=== PATIENT | female | born 1965 | race African-American/Black ===

== ENCOUNTER 2017-02-01 15:17 | Inpatient (IN) | payer OTHER ==
--- NOTE | 2017-02-01 16:29 | HP ---
COWS - Scale Resting Pulse: 2= MS 101-120 Sweatin=Flushed/Facial Moisture Restless Observation: 3= Extraneous Movement Pupil Size: 2= Moderately Dilated Bone or Joint Aches: 2= Severe Diffuse Aches Runny Nose/ Eye Tearin= Runny Nose/Eyes GI Upset > 30mins: 3= Vomiting/Diarrhea Tremor Observation: 2= Slight Tremor Visible Yawning Observation: 2= >3x During Session Anxiety or Irritability: 2=Irritable/Anxious Goose Flesh Skin: 0=Smooth Skin COWS Score: 22 Admission ROS S - HPI Chief Complaint: I NEED HELP TO STOP USINIG PERCOCET Allergies/Adverse Reactions: Allergies Allergy/AdvReac Type Severity Reaction Status Date / Time shellfish derived Allergy Mild Hives Verified 03/16/16 09:45 Sulfa (Sulfonamide Allergy Verified 03/16/16 09:45 Antibiotics) sulfamethoxazole Allergy Verified 03/16/16 09:45 [From Bactrim] trimethoprim [From Bactrim] Allergy Verified 03/16/16 09:45 History of Present Illness: THIS 52 YEARS OLD FEMALE WITH OPIOID DEPENDENCE PERCOCET,SEEKING DETOX,LAST DETOX,LAST DETOX 08/29/12 TO 09/01/12 MULTIPLE MEDICAL PROBLEM HIV SINCE 1998,ASTHMA,COPD,WEIGHT LOSS LONGEST PERIOD OF SOBRIETY 3 YEARS Exam Limitations: No Limitations - Ebola screening Have you traveled outside of the country in the last 21 days: No Have you had contact with anyone from an Ebola affected area: No Do you have a fever: No - Review of Systems Constitutional: Chills, Diaphoresis, Loss of Appetite, Malaise, Night Sweats, Changes in sleep, Weakness, Unintentional Wgt. Loss EENT: reports: Tearing, Nose Congestion Respiratory: reports: No Symptoms reported Cardiac: reports: Palpitations GI: reports: Diarrhea, Nausea, Poor Appetite, Vomiting, Abdominal cramping, Other (ANAL CANCER S/P RADIATION AND CHEMOTHERAPY IN 2010) : reports: No Symptoms Reported, Other (S/P NEPHRECTOMY RIGHT FOR CANCER) Musculoskeletal: reports: Back Pain, Joint Pain, Muscle Pain, Joint Stiffness (S /P RIGHT KNEE REPLACEMANT S/P RIGHT HIP REPLACEMANT) Integumentary: reports: Dryness Neuro: reports: Headache, Tremors Endocrine: reports: No Symptoms Reported Hematology: reports: Other (HIV) Psychiatric: reports: Judgement Intact, Mood/Affect Appropiate, Orientated x3 ( INSPMNIA) Patient History - Patient Medical History Hx Anemia: Yes Hx Asthma: Yes Hx Chronic Obstructive Pulmonary Disease (COPD): Yes Hx Cancer: Yes (Rectal Carcinoma ,Cervical CA, Renal Mass Treated c Chemo/RT (2010)) Hx Seizures: No Hx Liver Disease: (Hepatic Lesion) Hx Renal Disease (ESRD): Yes (Renal Mass) Hx Human Immunodeficiency Virus (HIV): Yes (SINCE 1998) Hx Hepatitis C: Yes Hx Depression: No Hx Suicide Attempt: No Hx Bipolar Disorder: No Hx Schizophrenia: No Other Medical History: IN SOMNIA,NO SUICIDAL,NO HOMIIDAL - Patient Surgical History Past Surgical History: Yes Hx Genitourinary Surgery: Yes (NEPHRECTOMY RIGHT IN 10/2015 [facility]) Hx Orthopedic Surgery: Yes (S/P RIGHT HIP AND RIGHT KNEE REPLACEMENT) Hx Hysterectomy: Yes Other Surgical History: Hysterectomy (2004), Port Removed Anesthesia Reaction: No - PPD History Previous Implant?: Yes Documented Results: Negative w/o proof Implanted On Prior [facility] Admission?: Yes Date: 09/01/12 PPD to be Administered?: Yes - Reproductive History Patient is a Female of Child Bearing Age (11 -55 yrs old): Yes Last Menstrual Period: 11/22/04 - Smoking Cessation Smoking history: Former smoker Have you smoked in the past 12 months: No Aproximately how many cigarettes per day: 0 If you are a former smoker, when did you quit?: STATED SHE STOP 1 MONTH Hx Chewing Tobacco Use: No Initiated information on smoking cessation: No - Substance & Tx. History Hx Alcohol Use: No Hx Substance Use: Yes Substance Use Type: Opiates Hx Substance Use Treatment: Yes ([facility] 08/29/12 TO 09/01/12) - Substances Abused PERCOCET Route: Oral Frequency: Daily Amount used: 40 MGS Age of first use: 51 Date of Last Use: 01/30/17 Family Disease History - Family Disease History Family History: Denies Admission Physical Exam BHS - Vital Signs Vital Signs: Vital Signs Temperature 98.8 F 02/01/17 16:56 Pulse Rate 120 H 02/01/17 16:56 Respiratory Rate 20 02/01/17 16:56 Blood Pressure 117/82 02/01/17 16:56 O2 Sat by Pulse Oximetry (%) - Physical General Appearance: Yes: Moderate Distress, Tremorous, Irritable, Sweating, Anxious HEENTM: Yes: Hearing grossly Normal, Pharynx Normal, Nasal Congestion Respiratory: Yes: Lungs Clear, Normal Breath Sounds, No Respiratory Distress Neck: Yes: Within Normal Limits, Supple, Trachea in good position Breast: Yes: Breast Exam Deferred Cardiology: Yes: Tachycardia Abdominal: Yes: Within Normal Limits, Normal Bowel Sounds, Non Tender, Soft Genitourinary: Yes: Within Normal Limits, Other (S/P RIGHT NEPHRECTOMY) Back: Yes: Muscle Spasm Musculoskeletal: Yes: Back pain, Joint Stiffness, Muscle Pain Extremities: Yes: Tremors (S/P RIGHT HP AND RIGHT KNEE REPLACEMENT), Other (S/P RIGHT HIP AND RIGHT KNEE REPLACEMENT) Neurological: Yes: knuckle bender II-XII NML intact, Fully Oriented, Alert, Motor Strength 5/5 Integumentary: Yes: Dry Lymphatic: Yes: Within Normal Limits - Diagnostic (1) Opioid dependence with withdrawal Current Visit: Yes Status: Acute (2) Asthma Current Visit: No Status: Active (3) HIV Current Visit: No Status: Active (4) COPD (chronic obstructive pulmonary disease) Current Visit: No Status: Acute (5) Lower back pain Current Visit: No Status: Acute (6) Weight loss Current Visit: Yes Status: Acute (7) History of nephrectomy, unilateral Current Visit: Yes Status: Acute (8) Status post right hip replacement Current Visit: Yes Status: Acute (9) Status post right knee replacement Current Visit: Yes Status: Acute (10) Hepatitis C Current Visit: Yes Status: Acute (11) Insomnia Current Visit: Yes Status: Acute (12) S/P hysterectomy Current Visit: Yes Status: Acute (13) Anal cancer Current Visit: Yes Status: Acute (14) History of radiation therapy Current Visit: Yes Status: Acute Screened but not Admitted - Documentation of Visit Screened but not Admitted: Yes Left Prior to Completion of Assessment: No Level of Care Recommended at this Time: ER Evaluation/Care Additional Information/Explanation: THIS 52 YEARS OLD FEMALE PRESET IN [facility] FOR DETOX FROM OPIATE. PERCOCET,MULTIPLE MEDICAL PROBLEMS,HIV,DIARRHEA,HEPATITIS , . ASTHMA,COPD,ANAL CANCER,S/P RIGHT NEPHRECTOMY,S/P RIGHT HIP AND RIGHT KNEE REPLCEMENT,PRIVOUS HITORY OF RADIATION AND CHEMOTHERAPY. EXTREMELY WEAK, DEHYDRATED,POOR FLUID INTAKE,. STATED HVING FEVER AND CHILL AT HOME. R/O SEPSIS,COLITITIS,HYOTENSION,DEHYRATED. TACHYCARDIA. PATIENT TO BE TRANSPOTED BY [facility] FOR EVALUATIO AND TREATMENT,MEDICAL CLEARANCE BY [facility]. SPOKE WITH DR PEÑA. BARTOLO [employer] SANDER PRESENT IN [facility] Breath Alcohol Content Breath Alcohol Content: 0 Vital Signs - Vital Signs Vital Signs Refused: No Temperature: 98.8 F Temperature Source: Oral Pulse Rate: 120 Respiratory Rate: 20 Blood Pressure: 117/82 BP Location: Left Arm - Height Height: 5 ft 7 in - Weight Weight: 150 lb Weight Measurement Method: Standing Scale Body Mass Index (BMI): 23.5
--- NOTE | 2017-02-01 18:05 | PN ---
S Progress Note Note: ADDENDUM URINE FOR RRUG SCREEN SHOWED POSITIVE FOR FOR OXY AND THC LOT [id number] EXPIRATION DATE 07/23/18 URINE FOR UCG NEGATIVE LOT [id number] EXP 07/23/18
--- NOTE | 2017-02-02 00:07 | HP ---
COWS - Scale Resting Pulse: 2= PA 101-120 Sweatin=Flushed/Facial Moisture Restless Observation: 3= Extraneous Movement Pupil Size: 2= Moderately Dilated Bone or Joint Aches: 2= Severe Diffuse Aches Runny Nose/ Eye Tearin= Runny Nose/Eyes GI Upset > 30mins: 3= Vomiting/Diarrhea Tremor Observation: 2= Slight Tremor Visible Yawning Observation: 2= >3x During Session Anxiety or Irritability: 2=Irritable/Anxious Goose Flesh Skin: 0=Smooth Skin COWS Score: 22 Admission ROS [facility] Chief Complaint: WITHDRAWAL SYMPTOMS Allergies/Adverse Reactions: Allergies Allergy/AdvReac Type Severity Reaction Status Date / Time shellfish derived Allergy Mild Hives Verified 02/01/17 18:30 Sulfa (Sulfonamide Allergy Verified 02/01/17 18:30 Antibiotics) sulfamethoxazole Allergy Verified 02/01/17 18:30 [From Bactrim] trimethoprim [From Bactrim] Allergy Verified 02/01/17 18:30 History of Present Illness: 52 Y.O. WOMAN WITH AN EXTENSIVE HISTORY OF PERCOCET DEPENDENCE IS HERE SEEKING DETOX. SHE WAS LAST ADMITTED HERE FOR DETOX ON 08/29/12. SHE WAS SENT TO [facility] EARLIER D/T WEAKNESS, DIARRHEA AND DEHYDRATION. SHE WAS DX WITH VIRAL GASTROENTERITIS AND RETURNS TO [facility] FOR DETOX. Exam Limitations: Physical Impairment (Uses a walker to ambulate.) - Ebola screening Have you traveled outside of the country in the last 21 days: No Have you had contact with anyone from an Ebola affected area: No Do you have a fever: No - Review of Systems Constitutional: Chills, Diaphoresis, Loss of Appetite, Malaise, Night Sweats, Changes in sleep, Weakness, Unintentional Wgt. Loss EENT: reports: Tearing, Nose Congestion Respiratory: reports: No Symptoms reported Cardiac: reports: Palpitations GI: reports: Diarrhea, Nausea, Poor Appetite, Vomiting, Abdominal cramping, Other (ANAL CA S/P RADIATION AND CHEMOTHERAPY IN 2010) : reports: No Symptoms Reported, Other (S/P RIGHT NEPHRECTOMY R/T CA) Musculoskeletal: reports: Back Pain, Joint Pain, Muscle Pain, Joint Stiffness, Other (S/T R KNEE REPLACEMENT S/P R HIP REPLACEMENT) Integumentary: reports: Dryness Neuro: reports: Headache, Tremors Endocrine: reports: No Symptoms Reported Hematology: reports: Other (HIV) Psychiatric: reports: Judgement Intact, Mood/Affect Appropiate, Orientated x3, other (INSOMNIA) Other Systems: Reviewed and Negative Patient History - Patient Medical History Hx Anemia: Yes Hx Asthma: Yes Hx Chronic Obstructive Pulmonary Disease (COPD): Yes Hx Cancer: Yes (Rectal Carcinoma ,Cervical CA, Renal Mass Treated c Chemo/RT (2010)) Hx Seizures: No Hx Liver Disease: (Hepatic Lesion) Hx Renal Disease (ESRD): Yes (Renal Mass) Hx Human Immunodeficiency Virus (HIV): Yes (SINCE 1998) Hx Hepatitis C: Yes (TREATED ) Hx Depression: No Hx Suicide Attempt: No Hx Bipolar Disorder: No Hx Schizophrenia: No Other Medical History: INSOMNIA, DENIES SI/HI - Patient Surgical History Past Surgical History: Yes Hx Genitourinary Surgery: Yes (NEPHRECTOMY RIGHT IN 10/2015 [facility]) Hx Orthopedic Surgery: Yes (S/P RIGHT HIP AND RIGHT KNEE REPLACEMENT) Hx Hysterectomy: Yes Other Surgical History: Hysterectomy (2004), Port Removed Anesthesia Reaction: No - PPD History Previous Implant?: Yes Documented Results: Negative w/o proof Implanted On Prior [facility] Admission?: Yes Date: 09/01/12 PPD to be Administered?: Yes - Reproductive History Patient is a Female of Child Bearing Age (11 -55 yrs old): Yes Last Menstrual Period: 11/22/04 Patient : No - Smoking Cessation Smoking history: Former smoker Have you smoked in the past 12 months: No Aproximately how many cigarettes per day: 0 If you are a former smoker, when did you quit?: STATED SHE STOPPED 3 YEARS AGO Hx Chewing Tobacco Use: No Initiated information on smoking cessation: No - Substance & Tx. History Hx Alcohol Use: No Hx Substance Use: Yes Substance Use Type: Opiates Hx Substance Use Treatment: Yes ([facility] [place] 08/2012) - Substances Abused PERCOCET Route: Oral Frequency: Daily Amount used: 40 MGS Age of first use: 51 Date of Last Use: 01/30/17 Family Disease History - Family Disease History Family Disease History: CA: Father (THROAT CA), Mother (BR CA ) Admission Physical Exam BHS - Vital Signs Vital Signs: Vital Signs - 24 hr Last Vital Signs Temp Pulse Resp BP Pulse Ox 98 F 114 H 16 124/80 02/02/17 00:41 02/02/17 00:41 02/02/17 00:41 02/02/17 00:41 - Physical General Appearance: Yes: Moderate Distress, Tremorous, Irritable, Sweating, Anxious HEENTM: Yes: Hearing grossly Normal, Normocephalic, Normal Voice Respiratory: Yes: Chest Non-Tender, Lungs Clear, Normal Breath Sounds, No Respiratory Distress, No Accessory Muscle Use Neck: Yes: Supple, Trachea in good position Breast: Yes: Breast Exam Deferred Cardiology: Yes: Tachycardia Abdominal: Yes: Non Tender, Flat, Soft Genitourinary: Yes: Other (No complaints reported) Back: Yes: Muscle Spasm Musculoskeletal: Yes: Back pain, Joint Stiffness, Muscle Pain, Other (S/p right hip and right knee replacement) Extremities: Yes: Tremors Neurological: Yes: Alert, Normal Mood/Affect, Normal Response - Diagnostic (1) Anal cancer Current Visit: Yes Status: Chronic (2) Hepatitis C Current Visit: Yes Status: Chronic (3) History of nephrectomy, unilateral Current Visit: Yes Status: Chronic (4) History of radiation therapy Current Visit: Yes Status: Chronic (5) Opioid dependence with withdrawal Current Visit: Yes Status: Chronic (6) Weight loss Current Visit: Yes Status: Acute (7) Asthma Current Visit: Yes Status: Acute (8) CHRONIC RT HIP PAIN Current Visit: Yes Status: Acute (9) HIV Current Visit: Yes Status: Acute (10) COPD (chronic obstructive pulmonary disease) Current Visit: Yes Status: Chronic (11) Gastroenteritis Current Visit: Yes Status: Acute Cleared for Admission S - Detox or Rehab S Level of Care: Medically Managed Detox Regimen/Protocol: Methadone S Breath Alcohol Content Breath Alcohol Content: 0 Vital Signs - Vital Signs Vital Signs Refused: No Temperature: 98 F Temperature Source: Oral Pulse Rate: 114 Respiratory Rate: 16 Blood Pressure: 124/80 BP Location: Left Arm Blood Pressure Position: Sitting - Height Height: 5 ft 7 in - Weight Weight: 147 lb Weight Measurement Method: Standing Scale Body Mass Index (BMI): 23.0 - Bowel Function Bowel Movement: Yes Urine Pregancy Test - Test Device Lot Number: [id number] Expiration Date: 07/23/18 - Control Horizontal Line in Upper Control Window?: Yes - Result Urine Test Results: Negative- NO Line Present Urine Drug Screen - Test Device Lot Number: [id number] Expiration Date: 07/23/18 - Control Is Test Valid: Yes - Results Urine Drug Screen Results: THC-Marijuana, OXY-Oxycodone
[2017-02-02] MEDS ORDERED: METHADONE HCL 10 MG TABLET (FOR DETOX USE ONLY) PO ONE ×3 (00:11→23:00)
[2017-02-02] MEDS ORDERED: guaiFENesin/D-METHORPHAN HB 10 ML UNIT-DOSE CUPS PO PRN (00:11)
[2017-02-02] MEDS ORDERED: LOPERAMIDE HCL 2 MG CAPSULE PO PRN (00:11)
[2017-02-02] MEDS ORDERED: MAG HYDROX/AL HYDROX/SIMETH 30 ML UNIT-DOSE CUP PO PRN (00:11)
[2017-02-02] MEDS ORDERED: MENTHOL/PHENOL 1 EACH UD MM PRN (00:11)
[2017-02-02] MEDS ORDERED: MAGNESIUM HYDROX 2400MG/30ML ORAL SUSPENSION 30 ML CUP PO PRN (00:11)
[2017-02-02] MEDS ORDERED: MAGNESIUM CITRATE 300 ML BOTTLE PO PRN (00:11)
[2017-02-02] MEDS ORDERED: ACETAMINOPHEN 325 MG TABLET (FP) PO PRN (00:11)
[2017-02-02] MEDS ORDERED: P-EPHED 60MG/TRIPROLIDI 2.5MG TABLET PO PRN (00:11)
[2017-02-02 00:33] VITALS: BMI 23.0
[2017-02-02] MEDS: diphenhydrAMINE HCL 50 MG CAPSULE PO PRN (01:20)
[2017-02-02] MEDS: IBUPROFEN 400 MG TABLET (FP) PO PRN (01:20)
[2017-02-02] MEDS: diazePAM 5 MG TABLET PO PRN ×2 (01:20→22:29)
[2017-02-02] MEDS ORDERED: DRONABINOL 5 MG CAPSULE PO SCH (06:00)
[2017-02-02] MEDS ORDERED: DRONABINOL 2.5 MG CAPSULE PO SCH ×2 (06:18→06:45)
[2017-02-02] MEDS: ALBUTEROL SO4 6.7 GM HFA INHALER IH PRN ×2 (08:36→22:30)
[2017-02-02] MEDS ORDERED: ALBUTEROL SO4 2.5/IPRATROPIUM 0.5 INH SOL 3 ML VIAL.NEB. NEB PRN (08:40)
[2017-02-02] MEDS ORDERED: cloNIDine HCL 0.1 MG TABLET PO ONE (10:32)
--- NOTE | 2017-02-02 10:35 | PN ---
BHS COWS - Scale Resting Pulse: 4= AL > 121 Sweatin= Chills/Flushing Restless Observation: 1= Difficult to Sit Still Pupil Size: 0= Normal to Room Light Bone or Joint Aches: 2= Severe Diffuse Aches Runny Nose/ Eye Tearin= Runny Nose/Eyes GI Upset > 30mins: 2= Nausea/Diarrhea Tremor Observation of Outstretched Hands: 2= Slight Tremor Visible Yawning Observation: 2= >3x During Session Anxiety or Irritability: 2=Irritable/Anxious Goose Flesh Skin: 0=Smooth Skin COWS Score: 18 BHS Progress Note (SOAP) Subjective: anxious sweats shakes interrupted sleep irritable Objective: 02/02/17 10:33 Vital Signs Temperature 98.2 F 02/02/17 10:00 Pulse Rate 129 H 02/02/17 10:00 Respiratory Rate 20 02/02/17 10:00 Blood Pressure 113/69 02/02/17 10:00 O2 Sat by Pulse Oximetry (%) labs pending awake/alert in wheel chair for ambulating no acute distress Assessment: 02/02/17 10:34 withdrawal sx Plan: continue detox increase fluids labs pending
[2017-02-02] MEDS: BUDESONIDE/FORMETEROL FUMARATE 160/4.5 mcg INHALER IH SCH ×2 (10:40→22:30)
--- NOTE | 2017-02-02 10:40 | PN ---
[facility] Progress Note Note: pt became irrate and threatening with another patient. pt advised not to continue such behavior but if it continue pt will be escorted by security off the unit. Pt was given a final warning. Pt was reminded that her reason for being her is to get the right tx but if her behavior and threats towards another patient or staff continue she will be d/c. pt is aware and in agreement.
[2017-02-02] MEDS: RITONAVIR 100 MG TABLET PO SCH (10:41)
[2017-02-02] MEDS: RALTEGRAVIR POTASSIUM 400 MG TAB PO SCH (10:41)
[2017-02-02] MEDS: DARUNAVIR ETHANOLATE 800 MG TAB PO SCH (10:41)
[2017-02-02] MEDS: PRENATAL VITAMINS W/ FOLIC ACID TABLET (FP) PO SCH (10:42)
[2017-02-02] MEDS: DRONABINOL 2.5 MG CAPSULE PO SCH ×2 (10:45→17:13)
--- NOTE | 2017-02-02 14:12 | EKG ---
Test Reason : Blood Pressure : / mmHG Vent. Rate : 111 BPM Atrial Rate : 111 BPM P-R Int : 156 ms QRS Dur : 076 ms QT Int : 352 ms P-R-T Axes : 071 049 052 degrees QTc Int : 478 ms SINUS TACHYCARDIA OTHERWISE NORMAL ECG WHEN COMPARED WITH ECG OF 27-NOV-2014 16:17, NO SIGNIFICANT CHANGE WAS FOUND Confirmed by MOLLY RIVERA MD ([id number]) on 02/02/2017 2:11:29 PM Referred By: Confirmed By:MOLLY RIVERA MD
[2017-02-02] MEDS: THIAMINE HCL 100 MG TABLET (FP) PO SCH (22:29)
[2017-02-03] MEDS: ALBUTEROL SO4 6.7 GM HFA INHALER IH PRN ×2 (07:20→19:17)
--- NOTE | 2017-02-03 09:17 | PN ---
BHS COWS - Scale Resting Pulse: 2= RI 101-120 Sweatin=Flushed/Facial Moisture Restless Observation: 1= Difficult to Sit Still Pupil Size: 0= Normal to Room Light Bone or Joint Aches: 2= Severe Diffuse Aches Runny Nose/ Eye Tearin= Nasal Congestion GI Upset > 30mins: 0= None Tremor Observation of Outstretched Hands: 1= Tremor [place], Not Seen Yawning Observation: 1= 1-2x During Session Anxiety or Irritability: 2=Irritable/Anxious Goose Flesh Skin: 0=Smooth Skin COWS Score: 12 BHS Progress Note (SOAP) Subjective: agitation sweats interrupted sleep body aches Objective: 02/03/17 09:34 Vital Signs Temperature 98.9 F 02/03/17 06:00 Pulse Rate 117 H 02/03/17 06:00 Respiratory Rate 18 02/03/17 06:00 Blood Pressure 139/77 02/03/17 06:00 O2 Sat by Pulse Oximetry (%) labs pending awake/alert ambulating no acute distress Assessment: 02/03/17 09:40 withdrawal sx Plan: continue detox increase fluids labs pending
[2017-02-03] MEDS ORDERED: cloNIDine HCL 0.1 MG TABLET PO ONE (09:30)
[2017-02-03 09:56] LABS: MCH 23.8 pg (25.7-33.7); MCHC 31.3 g/dl (32.0-36.0); MEAN CELL VOLUME 76.1 fl (80-96); MEAN PLT VOLUME 9.4 fl (7.5-11.1); PLATELET COUNT 293 K/MM3 (134-434); RDW 21.5 % (11.6-15.6); WHITE BLOOD COUNT 7.5 K/mm3 (4.0-10.0)
[2017-02-03] MEDS ORDERED: METHADONE HCL 10 MG TABLET (FOR DETOX USE ONLY) PO ONE (10:00)
[2017-02-03 10:10] LABS: ALBUMIN 3.5 g/dl (3.4-5.0); BILIRUBIN,TOTAL 0.3 mg/dL (0.2-1.0); CALCIUM 9.7 mg/dL (8.5-10.1); COCKROFT - GAULT 67.694; TOT PROT 7.5 g/dl (6.4-8.2)
[2017-02-03] MEDS: BUDESONIDE/FORMETEROL FUMARATE 160/4.5 mcg INHALER IH SCH ×2 (10:40→22:19)
[2017-02-03] MEDS: DRONABINOL 2.5 MG CAPSULE PO SCH ×2 (10:40→17:06)
[2017-02-03] MEDS: DARUNAVIR ETHANOLATE 800 MG TAB PO SCH (10:40)
[2017-02-03] MEDS: RITONAVIR 100 MG TABLET PO SCH (10:40)
[2017-02-03] MEDS: PRENATAL VITAMINS W/ FOLIC ACID TABLET (FP) PO SCH (10:41)
[2017-02-03] MEDS: RALTEGRAVIR POTASSIUM 400 MG TAB PO SCH (10:42)
[2017-02-03] MEDS: IBUPROFEN 400 MG TABLET (FP) PO PRN ×2 (10:44→22:21)
[2017-02-03] MEDS: diazePAM 5 MG TABLET PO PRN ×2 (10:44→22:19)
[2017-02-03] MEDS ORDERED: DRONABINOL 2.5 MG CAPSULE PO ONE (10:51)
[2017-02-03] MEDS: THIAMINE HCL 100 MG TABLET (FP) PO SCH (22:19)
[2017-02-03] MEDS: diphenhydrAMINE HCL 50 MG CAPSULE PO PRN (22:20)
[2017-02-04] MEDS: diazePAM 5 MG TABLET PO PRN ×2 (06:35→22:30)
[2017-02-04] MEDS: IBUPROFEN 400 MG TABLET (FP) PO PRN ×2 (06:35→22:33)
[2017-02-04] MEDS: ALBUTEROL SO4 6.7 GM HFA INHALER IH PRN ×3 (06:35→19:54)
[2017-02-04] MEDS ORDERED: METHADONE HCL 5 MG TABLET (FOR DETOX USE ONLY) PO ONE (10:00)
[2017-02-04] MEDS: BUDESONIDE/FORMETEROL FUMARATE 160/4.5 mcg INHALER IH SCH ×2 (10:52→22:29)
[2017-02-04] MEDS: RITONAVIR 100 MG TABLET PO SCH (10:53)
[2017-02-04] MEDS: RALTEGRAVIR POTASSIUM 400 MG TAB PO SCH (10:53)
[2017-02-04] MEDS: DRONABINOL 2.5 MG CAPSULE PO SCH ×2 (10:53→17:17)
[2017-02-04] MEDS: PRENATAL VITAMINS W/ FOLIC ACID TABLET (FP) PO SCH (10:53)
[2017-02-04] MEDS: DARUNAVIR ETHANOLATE 800 MG TAB PO SCH (10:53)
--- NOTE | 2017-02-04 11:26 | PN ---
BHS Progress Note (SOAP) Subjective: sweats mild shakes Objective: 02/04/17 11:26 Vital Signs Temperature 98.2 F 02/04/17 10:00 Pulse Rate 129 H 02/04/17 10:00 Respiratory Rate 20 02/04/17 10:00 Blood Pressure 116/69 02/04/17 10:00 O2 Sat by Pulse Oximetry (%) awake/alert no acute distress Assessment: 02/04/17 11:26 mild withdrawal sx Plan: continue detox increase fluids
[2017-02-04] MEDS: diphenhydrAMINE HCL 50 MG CAPSULE PO PRN (22:29)
[2017-02-04] MEDS: THIAMINE HCL 100 MG TABLET (FP) PO SCH (22:30)
[2017-02-05] MEDS: hydrOXYzine PAMOATE 50 MG CAPSULE (FP) PO PRN ×2 (06:01→22:46)
[2017-02-05] MEDS: IBUPROFEN 400 MG TABLET (FP) PO PRN (06:01)
[2017-02-05] MEDS ORDERED: METHADONE HCL 5 MG TABLET (FOR DETOX USE ONLY) PO ONE (10:00)
[2017-02-05] MEDS: PRENATAL VITAMINS W/ FOLIC ACID TABLET (FP) PO SCH (10:45)
[2017-02-05] MEDS: RALTEGRAVIR POTASSIUM 400 MG TAB PO SCH (10:45)
[2017-02-05] MEDS: DARUNAVIR ETHANOLATE 800 MG TAB PO SCH (10:46)
[2017-02-05] MEDS: BUDESONIDE/FORMETEROL FUMARATE 160/4.5 mcg INHALER IH SCH ×2 (10:46→22:44)
[2017-02-05] MEDS: DRONABINOL 2.5 MG CAPSULE PO SCH ×2 (10:46→17:39)
[2017-02-05] MEDS: RITONAVIR 100 MG TABLET PO SCH (10:47)
--- NOTE | 2017-02-05 12:47 | PN ---
BHS Progress Note (SOAP) Subjective: sweats anxiety Objective: 02/05/17 12:46 Vital Signs Temperature 99.1 F 02/05/17 09:57 Pulse Rate 118 H 02/05/17 09:57 Respiratory Rate 16 02/05/17 09:57 Blood Pressure 141/84 02/05/17 09:57 O2 Sat by Pulse Oximetry (%) awake/alert ambulating no acute distress Assessment: 02/05/17 12:46 withdrawal sx Plan: continue detox increase fluids
[2017-02-05] MEDS: ALBUTEROL SO4 6.7 GM HFA INHALER IH PRN (22:45)
[2017-02-05] MEDS: THIAMINE HCL 100 MG TABLET (FP) PO SCH (23:29)
[2017-02-06] MEDS: IBUPROFEN 400 MG TABLET (FP) PO PRN (04:38)
[2017-02-06] MEDS: hydrOXYzine PAMOATE 50 MG CAPSULE (FP) PO PRN ×2 (04:41→11:14)
[2017-02-06] MEDS ORDERED: METHADONE HCL 10 MG TABLET (FOR DETOX USE ONLY) PO ONE (10:00)
[2017-02-06] MEDS: RALTEGRAVIR POTASSIUM 400 MG TAB PO SCH (11:08)
[2017-02-06] MEDS: BUDESONIDE/FORMETEROL FUMARATE 160/4.5 mcg INHALER IH SCH (11:08)
[2017-02-06] MEDS: DRONABINOL 2.5 MG CAPSULE PO SCH (11:09)
[2017-02-06] MEDS: DARUNAVIR ETHANOLATE 800 MG TAB PO SCH (11:09)
[2017-02-06] MEDS: RITONAVIR 100 MG TABLET PO SCH (11:09)
[2017-02-06] MEDS: PRENATAL VITAMINS W/ FOLIC ACID TABLET (FP) PO SCH (11:09)
[2017-02-06 11:12] VITALS: BP 132/81; PULSE 113; TEMP 98.1
--- NOTE | 2017-02-06 11:27 | PN ---
S Progress Note Note: Pt is feeling "great" and will be d/c today. Pt states will f/u with her PMD and go the physical therapy as scheduled.
--- NOTE | 2017-02-06 11:33 | DS ---
[facility] Detox Discharge Summary Admission Date: 02/02/17 Discharge Date: 02/06/17 - History Present History: Alcohol Dependence, Opioid Dependence - Physical Exam Results Vital Signs: Vital Signs Temperature 98.1 F 02/06/17 11:11 Pulse Rate 113 H 02/06/17 11:11 Respiratory Rate 20 02/06/17 11:11 Blood Pressure 132/81 02/06/17 11:11 O2 Sat by Pulse Oximetry (%) - Treatment Hospital Course: Detox Protocol Followed, Detoxed Safely, Responded well, Discharged Condition Good, Rehab Referral Accepted - Medication Discharge Medications: Ambulatory Orders Albuterol Sulfate Inhaler - [Ventolin HFA Inhaler -] 1 inh PO QID PRN 07/24/14 Darunavir Ethanolate [Prezista] 800 mg PO DAILY 07/24/14 Raltegravir Potassium [Isentress] 800 mg PO DAILY 07/24/14 Ritonavir [Norvir] 100 mg PO DAILY 07/24/14 Budesonide/Formeterol Fumarate [SYMBICORT 160/4.5mcg -] 1 inh PO BID 03/16/16 Dronabinol [Marinol] 5 mg PO TID 03/16/16 - Diagnosis (1) Asthma Current Visit: Yes Status: Chronic (2) CHRONIC RT HIP PAIN Current Visit: Yes Status: Chronic (3) Gastroenteritis Current Visit: Yes Status: Chronic (4) HIV Current Visit: Yes Status: Chronic (5) Insomnia Current Visit: Yes Status: Chronic (6) S/P hysterectomy Current Visit: Yes Status: Acute (7) Status post right hip replacement Current Visit: Yes Status: Acute (8) Status post right knee replacement Current Visit: Yes Status: Acute (9) Weight loss Current Visit: Yes Status: Acute (10) Anal cancer Current Visit: No Status: Inactive (11) COPD (chronic obstructive pulmonary disease) Current Visit: Yes Status: Chronic Qualifiers: COPD type: chronic bronchitis (12) Hepatitis C Current Visit: Yes Status: Chronic Qualifiers: Viral hepatitis chronicity: chronic Hepatic coma status: without hepatic coma Qualified Code(s): B18.2 - Chronic viral hepatitis C (13) History of nephrectomy, unilateral Current Visit: Yes Status: Resolved (14) History of radiation therapy Current Visit: Yes Status: Resolved (15) Opioid dependence with withdrawal Current Visit: Yes Status: Chronic (16) Alcohol dependence Current Visit: No Status: Active (17) Cocaine abuse Current Visit: No Status: Active (18) Bronchospasm Current Visit: No Status: Acute (19) Exacerbation of asthma Current Visit: No Status: Acute (20) Lower back pain Current Visit: No Status: Acute - AMA Did Patient Leave Against Medical Advice: No (d/c home )
[2017-02-07] MEDS ORDERED: METHADONE HCL 5 MG TABLET (FOR DETOX USE ONLY) PO ONE (06:00)
== END 2017-02-06 12:25 | disposition home or self-care (01) | DRG 773 ==
LOC: YASAS 15:17 → Y6N 02-02 00:35
PROVIDERS: ADMIT Internal Medicine; ATTEND Internal Medicine
PROC: HZ2ZZZZ Detoxification Services for Substance Abuse Treatment (ICD-10-PCS; principal; 2017-02-02)
DX: F11.23 Opioid dependence with withdrawal (principal); F10.230 Alcohol dependence with withdrawal, uncomplicated; F14.10 Cocaine abuse, uncomplicated; D64.9 Anemia, unspecified; J45.901 Unspecified asthma with (acute) exacerbation; J42 Unspecified chronic bronchitis; M25.551 Pain in right hip; G89.29 Other chronic pain; K52.9 Noninfective gastroenteritis and colitis, unspecified; R00.0 Tachycardia, unspecified; Z21 Asymptomatic human immunodeficiency virus [HIV] infection status; G47.00 Insomnia, unspecified; Z90.710 Acquired absence of both cervix and uterus; Z96.641 Presence of right artificial hip joint; Z96.651 Presence of right artificial knee joint; Z87.898 Personal history of other specified conditions; C21.0 Malignant neoplasm of anus, unspecified; Z92.21 Personal history of antineoplastic chemotherapy; B18.2 Chronic viral hepatitis C; Z90.5 Acquired absence of kidney; M54.5 Low back pain; Z87.891 Personal history of nicotine dependence; Z85.41 Personal history of malignant neoplasm of cervix uteri
CPT/HCPCS: 36415; 80053; 85027; 86593; 93005; 93010; 94640

== ENCOUNTER 2017-02-01 18:21 | Emergency (ER) | payer OTHER ==
[2017-02-01 18:30] VITALS: BMI 23.0
[2017-02-01] MEDS ORDERED: SODIUM CHLORIDE 1,000 ML IV STA (19:32)
--- NOTE | 2017-02-01 19:34 | PDOC ---
History of Present Illness - General Chief Complaint: Substance Abuse Stated Complaint: DETOX WITHDRAWAL Time Seen by Provider: 02/01/17 19:10 History Source: Patient Exam Limitations: No Limitations - History of Present Illness Initial Comments: 02/01/17 21:30 52yo Female patient w/ PmHx: HIV+, Opioid Dependence, Hip and Knee replacement presents to ED c/o n/v/d. Patient states she was seen at [facility] emergency department for n/v/d this morning and diagnosed with viral gastroenteritis and signed herself out. She was then referred to [address] [place] [address] for Detox from Opioids. Patient was then sent from [address] [place] [address] to this emergency department for medical clearance regarding n/v/d and fever. Timing/Duration: constant Severity: mild Modifying Factors: worse with: cold therapy, eating, immobilization, medication , movement, rest, other Associated Symptoms: denies: denies symptoms, chest pain, cough, diaphoresis, fever/chills, headaches, loss of appetite, malaise, nausea/vomiting, rash, seizure, shortness of breath, syncope, weakness, other Aspirin Received prior to arrival: No: no aspirin today, unknown, 81 mg x 1, 81 mg x 2, 81 mg x 3, 81 mg x 4, 325 mg x 1, provided at home, provided by EMS, provided by ED [facility] Contraindications(Core Measure): No: Allergy, Other, Active Blding w/i 24 hrs., Plavix, Receiving Warfarin Past History - Travel Traveled outside of the country in the last 30 days: No Close contact w/someone who was outside of country & ill: No - Past Medical History Allergies/Adverse Reactions: Allergies Allergy/AdvReac Type Severity Reaction Status Date / Time shellfish derived Allergy Mild Hives Verified 02/01/17 18:30 Sulfa (Sulfonamide Allergy Verified 02/01/17 18:30 Antibiotics) sulfamethoxazole Allergy Verified 02/01/17 18:30 [From Bactrim] trimethoprim [From Bactrim] Allergy Verified 02/01/17 18:30 Home Medications: Ambulatory Orders Albuterol Sulfate Inhaler - [Ventolin HFA Inhaler -] 1 inh PO QID PRN 07/24/14 Darunavir Ethanolate [Prezista] 800 mg PO DAILY 07/24/14 Raltegravir Potassium [Isentress] 800 mg PO DAILY 07/24/14 Ritonavir [Norvir] 100 mg PO DAILY 07/24/14 Budesonide/Formeterol Fumarate [SYMBICORT 160/4.5mcg -] 1 inh PO BID 03/16/16 Dronabinol [Marinol] 5 mg PO TID 03/16/16 Anemia: Yes Asthma: Yes Cancer: Yes (Rectal Carcinoma ,Cervical CA, Renal Mass Treated c Chemo/RT (2010)) COPD: Yes HIV: Yes Liver Disease: (Hepatic Lesion) Suicide Attempt (Hx): No Seizures: No - Surgical History Orthopedic Surgery: Yes (S/P RIGHT HIP AND RIGHT KNEE REPLACEMENT) - Psycho/Social/Smoking Cessation Hx Anxiety: No Suicidal Ideation: No Smoking Status: Yes Smoking History: Former smoker Have you smoked in the past 12 months: No Number of Cigarettes Smoked Daily: 5 If you are a former smoker, when did you quit?: STATED SHE STOP 1 MONTH Information on smoking cessation initiated: No 'Breaking Loose' booklet given: 01/14/13 Hx Alcohol Use: No Drug/Substance Use Hx: No Substance Use Type: None, Opiates Hx Substance Use Treatment: Yes ([facility] 08/29/12 TO 09/01/12) Review of Systems - Review of Systems Able to Perform ROS?: Yes Is the patient limited Khmer proficient: No Constitutional: Yes: Fever. No: Chills Respiratory: No: Cough, Orthopnea, Shortness of Breath, Stridor Cardiac (ROS): No: Chest Pain, Lightheadedness, Palpitations ABD/GI: Yes: Diarrhea, Nausea, Vomiting. No: Poor Appetite, Poor Fluid Intake, Abdominal cramping : No: Burning, Dysuria, Hematuria, Urgency Musculoskeletal: No: Back Pain Integumentary: No: Bruising, Erythema, Rash, Sweating Neurological: No: Headache, Seizure, Ataxia, Dizziness All Other Systems: Reviewed and Negative *Physical Exam - Vital Signs Last Vital Signs Temp Pulse Resp BP Pulse Ox 99.3 F 119 H 18 128/89 100 02/01/17 18:26 02/01/17 18:26 02/01/17 18:26 02/01/17 18:26 02/01/17 18:26 - Physical Exam General Appearance: Yes: Nourished, Appropriately Dressed. No: Apparent Distress, Mild Distress, Moderate Distress, Severe Distress HEENT: positive: EOMI, MATTHEW, Normal ENT Inspection, Normal Voice, Symmetrical, TMs Normal, Pharynx Normal. negative: Pharyngeal Erythema, Tonsillar Exudate, Tonsillar Erythema, TM Bulging, TM Dull, TM Erythema Neck: positive: Trachea midline, Normal Thyroid, Supple. negative: Rigid, Stridor, Lymphadenopathy (R), Lymphadenopathy (L) Respiratory/Chest: positive: Lungs Clear, Normal Breath Sounds. negative: Chest Tender, Respiratory Distress, Accessory Muscle Use, Labored Respiration, Rapid RR, Stridor, Wheezing Cardiovascular: positive: Regular Rhythm, Regular Rate Gastrointestinal/Abdominal: positive: Normal Bowel Sounds, Soft. negative: Distended, Guarding, Rebound, Tenderness Musculoskeletal: positive: Normal Inspection. negative: CVA Tenderness Extremity: positive: Normal Capillary Refill, Normal Inspection, Normal Range of Motion. negative: Pedal Edema, Swelling, Calf Tenderness, Erythema, Inflammation Integumentary: positive: Normal Color, Dry, Warm Neurologic: positive: crime lab analyst II-XII NML intact, Fully Oriented, Alert, Normal Mood/ Affect, Normal Response, Motor Strength 12/26 ED Treatment Course - LABORATORY CBC & Chemistry Diagram: 02/01/17 19:40 02/01/17 19:40 - RADIOLOGY Radiology Studies Ordered: Category Date Time Status ABDOMEN & PELVIS CT W/O CONTR [CT] Stat CT Scan 02/01/17 19:33 Ordered CHEST PA & LAT [RAD] Stat Radiology 02/01/17 19:32 Ordered *DC/Admit/Observation/Transfer Diagnosis at time of Disposition: Gastroenteritis - Discharge Dispostion Disposition: HOME Condition at time of disposition: Stable Admit: No - Patient Instructions Printed Discharge Instructions: DI for Viral Gastroenteritis -- Adult Additional Instructions: FOLLOW UP WITH YOUR DOCTOR NEEDED. RETURN IF SYMPTOMS WORSEN OR ANY CONCERNS FOR FURTHER EVALUATION. Print Language: TANZANIAN
[2017-02-01 19:52] LABS: BASOPHIL 0.5 % (0-2.0); EOSINOPHIL 1.3 % (0-4.5); MCH 23.6 pg (25.7-33.7); MCHC 31.7 g/dl (32.0-36.0); MEAN CELL VOLUME 74.4 fl (80-96); MEAN PLT VOLUME 9.3 fl (7.5-11.1); NEUTROPHILS 71.6 % (42.8-82.8); PLATELET COUNT 260 K/MM3 (134-434); RDW 21.2 % (11.6-15.6); WHITE BLOOD COUNT 9.8 K/mm3 (4.0-10.0)
[2017-02-01 20:19] LABS: ALBUMIN 3.3 g/dl (3.4-5.0); ANION GAP 12 (8-16); BILIRUBIN,TOTAL 0.4 mg/dL (0.2-1.0); CALCIUM 9.1 mg/dL (8.5-10.1); CO2 20 mmol/L (21-32); COCKROFT - GAULT 75.2165; CREATININE 0.9 mg/dL (0.55-1.02); GLUCOSE,RANDOM 71 mg/dL (74-106); SGPT/ALT 14 U/L (12-78); TOT PROT 7.1 g/dl (6.4-8.2)
[2017-02-01 20:20] LABS: ALK PHOS 117 U/L (45-117)
[2017-02-01 20:22] LABS: SGOT/AST 23 U/L (15-37)
[2017-02-01 21:01] LABS: ANISOCYTOSIS 2+; PLATELET ESTIMATE ADEQUATE (NORMAL); POIKILOCYTOSIS 1+; POLYCHROMASIA 1+
[2017-02-01 21:02] LABS: OVALOCYTES 1+
[2017-02-01] MEDS ORDERED: ACETAMINOPHEN 325 MG TABLET (FP) PO ONE (21:22)
[2017-02-01] MEDS ORDERED: ACETAMINOPHEN 325 MG TABLET (FP) ONE (21:55)
[2017-02-01 22:13] LABS: URINE APPEARANCE CLEAR; URINE BILIRUBIN NEGATIVE (NEGATIVE); URINE BLOOD NEGATIVE (NEGATIVE); URINE COLOR STRAW; URINE GLUCOSE (UA) NEGATIVE (NEGATIVE); URINE KETONE NEGATIVE (NEGATIVE); URINE LEUK ESTERASE 1+ (NEGATIVE); URINE NITRITE NEGATIVE (NEGATIVE); URINE PROTEIN NEGATIVE (NEGATIVE); URINE UROBILINOGEN NEGATIVE E.U./dl (0.2-1.0)
[2017-02-01 22:15] LABS: URINE MUCUS RARE; URINE RBC <1 /hpf (0-3); URINE WBC 8 /hpf (3-5)
[2017-02-01] MEDS ORDERED: DIPHENOXYLATE 2.5/ATROPINE.025 1 COMBO TABLET PO ONE (23:28)
[2017-02-01] MEDS ORDERED: DIPHENOXYLATE 2.5/ATROPINE.025 1 COMBO TABLET ONE (23:36)
[2017-02-01 23:47] VITALS: BP 118/74; PULSE 82; TEMP 98.5
--- NOTE | 2017-02-03 10:53 | EKG ---
Test Reason : Blood Pressure : / mmHG Vent. Rate : 121 BPM Atrial Rate : 121 BPM P-R Int : 158 ms QRS Dur : 078 ms QT Int : 320 ms P-R-T Axes : 054 042 063 degrees QTc Int : 454 ms SINUS TACHYCARDIA WITH PREMATURE ATRIAL COMPLEXES OTHERWISE NORMAL ECG WHEN COMPARED WITH ECG OF 27-NOV-2014 16:17, PREMATURE ATRIAL COMPLEXES ARE NOW PRESENT Confirmed by MOLLY RIVERA MD ([id number]) on 02/03/2017 10:53:17 AM Referred By: Confirmed By:MOLLY RIVERA MD
== END 2017-02-01 23:40 | disposition home or self-care (01) ==
LOC: JER 18:21
PROC: 3E0337Z Introduction of Electrolytic and Water Balance Substance into Peripheral Vein, Percutaneous Approach (ICD-10-PCS; principal; 2017-02-01)
DX: K52.9 Noninfective gastroenteritis and colitis, unspecified (principal); Z21 Asymptomatic human immunodeficiency virus [HIV] infection status; F11.20 Opioid dependence, uncomplicated; D64.9 Anemia, unspecified; C20 Malignant neoplasm of rectum; C79.82 Secondary malignant neoplasm of genital organs; J45.909 Unspecified asthma, uncomplicated; J44.9 Chronic obstructive pulmonary disease, unspecified; Z92.21 Personal history of antineoplastic chemotherapy; Z96.641 Presence of right artificial hip joint; Z96.651 Presence of right artificial knee joint; Z87.891 Personal history of nicotine dependence
CPT/HCPCS: 36415; 71020-TC; 74176-TC; 80053; 81003; 81015; 82550; 82553; 85025; 87040; 93005; 93010; 96360; 99284-25

== ENCOUNTER 2017-03-19 10:39 | Inpatient (IN) | payer OTHER ==
[2017-03-19 11:11] VITALS: BMI 23.2
--- NOTE | 2017-03-19 18:11 | HP ---
COWS - Scale Resting Pulse: 2= [place] 101-120 Sweatin=Flushed/Facial Moisture Restless Observation: 1= Difficult to Sit Still Pupil Size: 0= Normal to Room Light Bone or Joint Aches: 2= Severe Diffuse Aches Runny Nose/ Eye Tearin= Runny Nose/Eyes GI Upset > 30mins: 3= Vomiting/Diarrhea Tremor Observation: 2= Slight Tremor Visible Yawning Observation: 2= >3x During Session Anxiety or Irritability: 2=Irritable/Anxious Goose Flesh Skin: 0=Smooth Skin COWS Score: 18 Admission ROS [facility] Chief Complaint: "I am here to Detox from Percocet." Patient is here to Detox from Percocet (Street-bought). Allergies/Adverse Reactions: Allergies Allergy/AdvReac Type Severity Reaction Status Date / Time shellfish derived Allergy Mild Hives Verified 03/19/17 15:30 Sulfa (Sulfonamide Allergy Verified 03/19/17 15:30 Antibiotics) sulfamethoxazole Allergy Verified 03/19/17 15:30 [From Bactrim] trimethoprim [From Bactrim] Allergy Verified 03/19/17 15:30 ibuprofen AdvReac Verified 03/19/17 16:21 ketorolac tromethamine AdvReac Verified 03/19/17 16:21 [From Toradol] History of Present Illness: Pt. is a 52 YO female here to Detox from Percocet (street-bought). Patient has had several previous Detox and Rehab admissions at [facility]. Exam Limitations: No Limitations - Ebola screening Have you traveled outside of the country in the last 21 days: No Have you had contact with anyone from an Ebola affected area: No Have you been sick,other than usual withdrawal symptoms: No Do you have a fever: No - Review of Systems Constitutional: Chills, Diaphoresis, Fever, Loss of Appetite, Malaise, Night Sweats, Changes in sleep, Unintentional Wgt. Loss (Lost approx. 10 lbs. over last 1 month.), Other (Patient ambulates with a Walker.) EENT: reports: Blurred Vision, Hearing Loss Respiratory: reports: Cough, SOB with Exertion Cardiac: reports: No Symptoms Reported GI: reports: Diarrhea, Nausea, Poor Appetite, Vomiting, Abdominal cramping : reports: No Symptoms Reported Musculoskeletal: reports: Joint Pain, Muscle Pain, Joint Stiffness Integumentary: reports: No Symptoms Reported Neuro: reports: Numbness (Right Knee, Bilateral feet.), Tingling (Right Knee, Bilateral feet.), Tremors Endocrine: reports: No Symptoms Reported Hematology: reports: Anemia (Takes Iron supplement.) Psychiatric: reports: Judgement Intact, Mood/Affect Appropiate, Orientated x3, Agitated, Anxious Other Systems: Reviewed and Negative Patient History - Patient Medical History Hx Anemia: Yes (Takes Iron supplement.) Hx Asthma: Yes (On meds.) Hx Chronic Obstructive Pulmonary Disease (COPD): No (Chronic Bronchitis.) Hx Cancer: Yes (Rectal Carcinoma ,Cervical CA, Renal Mass Treated c Chemo/RT (2010)) Hx Cardiac Disorders: No Hx Congestive Heart Failure: No Hx Hypertension: Yes (No meds.) Hx Hypercholesterolemia: Yes (No meds.) Hx Pacemaker: No HX Cerebrovascular Accident: No Hx Seizures: No Hx Dementia: No Hx Diabetes: No Hx Gastrointestinal Disorders: No Hx Liver Disease: Yes (Hepatic Lesion) Hx Genitourinary Disorders: No Hx Sexually Transmitted Disorders: No Hx Renal Disease (ESRD): Yes (Pt had kidney failure 02/25/17) Hx Human Immunodeficiency Virus (HIV): Yes (SINCE 1998) Hx Hepatitis C: Yes (TREATED ) Hx Depression: No Hx Suicide Attempt: No Hx Bipolar Disorder: No Hx Schizophrenia: No - Patient Surgical History Past Surgical History: Yes Hx Genitourinary Surgery: Yes (NEPHRECTOMY RIGHT [facility]) Hx Orthopedic Surgery: Yes (S/P RIGHT HIP AND RIGHT KNEE REPLACEMENT) Hx Hysterectomy: Yes Other Surgical History: Hysterectomy (2004), Port Removed Anesthesia Reaction: No - PPD History Previous Implant?: Yes Documented Results: Negative w/o proof Implanted On Prior R Admission?: Yes Date: 09/01/12 - Reproductive History Last Menstrual Period: 11/22/04 Patient : No - Smoking Cessation Smoking history: Former smoker Have you smoked in the past 12 months: No Aproximately how many cigarettes per day: 0 If you are a former smoker, when did you quit?: 2013 Hx Chewing Tobacco Use: No Initiated information on smoking cessation: Yes - Substances Abused percocets Route: Oral Frequency: Daily Amount used: 30mg Age of first use: 47 Date of Last Use: 03/19/17 Family Disease History - Family Disease History Family Disease History: CA: Father (THROAT CA), Mother (BR CA ) Admission Physical Exam BHS - Vital Signs Vital Signs: Vital Signs - 24 hr 03/19/17 11:09 Temperature 96.9 F L Pulse Rate 105 H Respiratory 18 Rate Blood Pressure 162/104 BHS Breath Alcohol Content Breath Alcohol Content: 0 Urine Pregancy Test - Result Urine Test Results: Negative- NO Line Present Urine Drug Screen - Results Drug Screen Negative: No Urine Drug Screen Results: OPI-Opiates, OXY-Oxycodone
--- NOTE | 2017-03-19 18:30 | HP ---
COWS - Scale Resting Pulse: 2= [place] 101-120 Sweatin=Flushed/Facial Moisture Restless Observation: 3= Extraneous Movement Pupil Size: 1= Pupils >than Normal Bone or Joint Aches: 2= Severe Diffuse Aches Runny Nose/ Eye Tearin= Nasal Congestion GI Upset > 30mins: 3= Vomiting/Diarrhea Tremor Observation: 0= None Yawning Observation: 1= 1-2x During Session Anxiety or Irritability: 2=Irritable/Anxious Goose Flesh Skin: 0=Smooth Skin COWS Score: 17 Admission ROS S - HPI Chief Complaint: WITHDRAWAL SYMPTOMS Allergies/Adverse Reactions: Allergies Allergy/AdvReac Type Severity Reaction Status Date / Time shellfish derived Allergy Mild Hives Verified 03/19/17 15:30 Sulfa (Sulfonamide Allergy Verified 03/19/17 15:30 Antibiotics) sulfamethoxazole Allergy Verified 03/19/17 15:30 [From Bactrim] trimethoprim [From Bactrim] Allergy Verified 03/19/17 15:30 ibuprofen AdvReac Verified 03/19/17 16:21 ketorolac tromethamine AdvReac Verified 03/19/17 16:21 [From Toradol] History of Present Illness: 52 y.o. woman with an extensive history of opiate dependence is here for detox. She was last here in 01/2017. Her longest period clean 3-4 years. Exam Limitations: Physical Impairment (Ambulates with the use of a walker) - Ebola screening Have you traveled outside of the country in the last 21 days: No Have you had contact with anyone from an Ebola affected area: No Have you been sick,other than usual withdrawal symptoms: No - Review of Systems Constitutional: Chills, Diaphoresis, Loss of Appetite, Malaise, Changes in sleep , Unintentional Wgt. Loss EENT: reports: Blurred Vision Respiratory: reports: SOB with Exertion Cardiac: reports: No Symptoms Reported GI: reports: Diarrhea : reports: No Symptoms Reported Musculoskeletal: reports: Back Pain, Joint Pain Integumentary: reports: No Symptoms Reported Neuro: reports: Unsteady Gait Endocrine: reports: No Symptoms Reported Hematology: reports: Anemia (MELISSA) Psychiatric: reports: Orientated x3 Other Systems: Reviewed and Negative Patient History - Patient Medical History Hx Anemia: Yes (MELISSA ) Hx Asthma: Yes Hx Chronic Obstructive Pulmonary Disease (COPD): Yes Hx Cancer: Yes (Rectal Carcinoma ,Cervical CA, Renal Mass Treated c Chemo/RT (2010)) Hx Cardiac Disorders: No Hx Congestive Heart Failure: No Hx Hypertension: No Hx Hypercholesterolemia: No Hx Pacemaker: No HX Cerebrovascular Accident: No Hx Seizures: No Hx Dementia: No Hx Diabetes: No Hx Gastrointestinal Disorders: No Hx Liver Disease: No Hx Genitourinary Disorders: No Hx Sexually Transmitted Disorders: No Hx Renal Disease (ESRD): Yes (Pt had kidney failure 02/25/17) Hx Thyroid Disease: No Hx Human Immunodeficiency Virus (HIV): Yes (SINCE 1998) Hx Hepatitis C: Yes (TREATED ) Hx Depression: No Hx Suicide Attempt: No Hx Bipolar Disorder: No Hx Schizophrenia: No - Patient Surgical History Past Surgical History: Yes Hx Genitourinary Surgery: Yes (NEPHRECTOMY RIGHT IN 10/2015 [facility]) Hx Orthopedic Surgery: Yes (S/P RIGHT HIP AND RIGHT KNEE REPLACEMENT) Hx Hysterectomy: Yes Other Surgical History: Hysterectomy (2004), Port Removed Anesthesia Reaction: No - PPD History Previous Implant?: Yes Documented Results: Negative w/o proof Implanted On Prior R Admission?: Yes Date: 09/01/12 PPD to be Administered?: Yes - Reproductive History Patient is a Female of Child Bearing Age (11 -55 yrs old): Yes Last Menstrual Period: 11/22/04 Patient : No - Smoking Cessation Smoking history: Former smoker Have you smoked in the past 12 months: No Aproximately how many cigarettes per day: 0 If you are a former smoker, when did you quit?: 2013 Hx Chewing Tobacco Use: No Initiated information on smoking cessation: Yes 'Breaking Loose' booklet given: 03/19/17 - Substance & Tx. History Hx Alcohol Use: No Hx Substance Use: Yes Substance Use Type: Opiates, Prescribed Hx Substance Use Treatment: Yes (Detox here in 01/2017; no rehab recently ) - Substances Abused percocets Route: Oral Frequency: Daily Amount used: 30mg Age of first use: 47 Date of Last Use: 03/19/17 Morphine Route: Oral Frequency: 3-6 times per week Amount used: 40 Age of first use: 52 Date of Last Use: 03/05/17 Family Disease History - Family Disease History Family Disease History: CA: Father (THROAT CA), Mother (BR CA ) Admission Physical Exam BHS - Vital Signs Vital Signs: Vital Signs - 24 hr 03/19/17 11:09 Temperature 96.9 F L Pulse Rate 105 H Respiratory 18 Rate Blood Pressure 162/104 - Physical General Appearance: Yes: Irritable, Anxious HEENTM: Yes: Hearing grossly Normal, Normal ENT Inspection, Normocephalic Respiratory: Yes: Chest Non-Tender, Lungs Clear, Normal Breath Sounds, No Respiratory Distress, No Accessory Muscle Use Neck: Yes: No masses,lesions,Nodules, Trachea in good position Breast: Yes: Breast Exam Deferred Cardiology: Yes: Regular Rhythm, Tachycardia Abdominal: Yes: Flat, Soft Genitourinary: Yes: Other (No complaints reported) Musculoskeletal: Yes: Joint Stiffness, Muscle Pain Extremities: Yes: Normal Inspection, Normal Range of Motion, Non-Tender Neurological: Yes: dietetic tech II-XII NML intact, Fully Oriented, Alert, Motor Strength 5/5, Normal Mood/Affect, Normal Response Integumentary: Yes: Normal Color, Dry, Warm Lymphatic: Yes: Within Normal Limits - Diagnostic (1) Asthma Current Visit: Yes Status: Chronic (2) CHRONIC RT HIP PAIN Current Visit: No Status: Chronic (3) COPD (chronic obstructive pulmonary disease) Current Visit: Yes Status: Chronic Qualifiers: COPD type: chronic bronchitis (4) HIV Current Visit: Yes Status: Chronic (5) Hepatitis C Current Visit: Yes Status: Chronic Qualifiers: Viral hepatitis chronicity: chronic Hepatic coma status: without hepatic coma Qualified Code(s): B18.2 - Chronic viral hepatitis C (6) Opioid dependence with withdrawal Current Visit: Yes Status: Chronic (7) Unsteady gait Current Visit: Yes Status: Chronic Cleared for Admission [facility] - Detox or Rehab [facility] Level of Care: Medically Managed Detox Regimen/Protocol: Methadone [facility] Breath Alcohol Content Breath Alcohol Content: 0 Urine Pregancy Test - Result Urine Test Results: Negative- NO Line Present Urine Drug Screen - Results Drug Screen Negative: No Urine Drug Screen Results: OPI-Opiates, OXY-Oxycodone
[2017-03-19] MEDS ORDERED: MENTHOL/PHENOL 1 EACH UD MM PRN (18:46)
[2017-03-19] MEDS ORDERED: MAG HYDROX/AL HYDROX/SIMETH 30 ML UNIT-DOSE CUP PO PRN (18:46)
[2017-03-19] MEDS ORDERED: guaiFENesin/D-METHORPHAN HB 10 ML UNIT-DOSE CUPS PO PRN (18:46)
[2017-03-19] MEDS ORDERED: MAGNESIUM HYDROX 2400MG/30ML ORAL SUSPENSION 30 ML CUP PO PRN (18:46)
[2017-03-19] MEDS ORDERED: MAGNESIUM CITRATE 300 ML BOTTLE PO PRN (18:46)
[2017-03-19] MEDS ORDERED: P-EPHED 60MG/TRIPROLIDI 2.5MG TABLET PO PRN (18:46)
[2017-03-19] MEDS ORDERED: ACETAMINOPHEN 325 MG TABLET (FP) PO PRN (18:46)
[2017-03-19] MEDS ORDERED: METHADONE HCL 10 MG TABLET (FOR DETOX USE ONLY) PO ONE ×2 (19:00→23:00)
[2017-03-19] MEDS: diazePAM 5 MG TABLET PO PRN (19:39)
[2017-03-19] MEDS ORDERED: [UNRECOGNIZED DRUG - OTHER] PO SCH (22:00)
[2017-03-19] MEDS ORDERED: FORMOTEROL PO SCH (22:00)
[2017-03-19] MEDS ORDERED: BUDESONIDE PO SCH (22:00)
[2017-03-19] MEDS: diphenhydrAMINE HCL 50 MG CAPSULE PO PRN (22:13)
[2017-03-19] MEDS: THIAMINE HCL 100 MG TABLET (FP) PO SCH (22:13)
[2017-03-19 23:08] LABS: URINE APPEARANCE CLEAR; URINE BILIRUBIN NEGATIVE (NEGATIVE); URINE BLOOD NEGATIVE (NEGATIVE); URINE COLOR LTYELLOW; URINE GLUCOSE (UA) NEGATIVE (NEGATIVE); URINE KETONE NEGATIVE (NEGATIVE); URINE NITRITE NEGATIVE (NEGATIVE); URINE UROBILINOGEN NEGATIVE mg/dL (0.2-1.0)
[2017-03-19 23:17] LABS: URINE LEUK ESTERASE 2+ (NEGATIVE); URINE PROTEIN 2+ (NEGATIVE)
[2017-03-19 23:26] LABS: URINE BACTERIA FEW /hpf (NONE SEEN); URINE MUCUS FEW; URINE RBC <1 /hpf (0-3); URINE WBC 7 /hpf (3-5)
[2017-03-20] MEDS: diazePAM 5 MG TABLET PO PRN ×3 (06:27→22:13)
--- NOTE | 2017-03-20 09:25 | EKG ---
Test Reason : Blood Pressure : / mmHG Vent. Rate : 099 BPM Atrial Rate : 099 BPM P-R Int : 148 ms QRS Dur : 076 ms QT Int : 358 ms P-R-T Axes : 063 048 058 degrees QTc Int : 459 ms POOR DATA QUALITY, INTERPRETATION MAY BE ADVERSELY AFFECTED SINUS RHYTHM WITH PREMATURE SUPRAVENTRICULAR COMPLEXES WHEN COMPARED WITH ECG OF 02-FEB-2017 00:31, PREMATURE SUPRAVENTRICULAR COMPLEXES ARE NOW PRESENT Confirmed by TRACE FELICIANO MD ([id number]) on 03/20/2017 9:24:45 AM Referred By: Preston Mehta Confirmed By:TRACE FELICIANO MD
[2017-03-20] MEDS ORDERED: BUDESONIDE/FORMETEROL FUMARATE 160/4.5 mcg INHALER IH SCH (10:00)
[2017-03-20] MEDS ORDERED: METHADONE HCL 10 MG TABLET (FOR DETOX USE ONLY) PO ONE (10:00)
[2017-03-20 10:15] LABS: MCH 22.7 pg (25.7-33.7); MEAN CELL VOLUME 73.4 fl (80-96); MEAN PLT VOLUME 10.1 fl (7.5-11.1); PLATELET COUNT 254 K/MM3 (134-434); RDW 22.8 % (11.6-15.6); WHITE BLOOD COUNT 8.7 K/mm3 (4.0-10.0)
[2017-03-20] MEDS: MOMETASONE FUROATE 220 MCG/IH INHALER IH PRN (10:15)
[2017-03-20] MEDS: RALTEGRAVIR POTASSIUM 400 MG TAB PO SCH (10:26)
[2017-03-20] MEDS: PRENATAL VITAMINS W/ FOLIC ACID TABLET (FP) PO SCH (10:27)
[2017-03-20] MEDS: RITONAVIR 100 MG TABLET PO SCH (10:27)
[2017-03-20] MEDS: PATIENT'S OWN MEDICATION (NON-FORMULARY) (Salmeterol Xinafoate [Serevent Diskus] 50 MCG) IH SCH ×3 (10:28→22:30)
[2017-03-20 10:39] LABS: ALBUMIN 3.6 g/dl (3.4-5.0); ALK PHOS 109 U/L (45-117); ANION GAP 13 (8-16); BILIRUBIN,TOTAL 0.4 mg/dL (0.2-1.0); CO2 23 mmol/L (21-32); GLUCOSE,RANDOM 105 mg/dL (74-106); SGOT/AST 9 U/L (15-37); SGPT/ALT 15 U/L (12-78); TOT PROT 6.8 g/dl (6.4-8.2)
[2017-03-20] MEDS: DARUNAVIR ETHANOLATE 800 MG TAB PO SCH (12:03)
[2017-03-20 12:12] LABS: HYPOCHROMIA 3+; MICROCYTOSIS 2+; TARGET CELLS 2+
--- NOTE | 2017-03-20 12:20 | PN ---
BHS COWS - Scale Resting Pulse: 2= [place] 101-120 Sweatin=Flushed/Facial Moisture Restless Observation: 1= Difficult to Sit Still Pupil Size: 0= Normal to Room Light Bone or Joint Aches: 2= Severe Diffuse Aches Runny Nose/ Eye Tearin= Runny Nose/Eyes GI Upset > 30mins: 2= Nausea/Diarrhea Tremor Observation of Outstretched Hands: 2= Slight Tremor Visible Yawning Observation: 2= >3x During Session Anxiety or Irritability: 2=Irritable/Anxious Goose Flesh Skin: 0=Smooth Skin COWS Score: 17 BHS Progress Note (SOAP) Subjective: dry skin sweats shakes interrupted sleep agitation anxiety body aches Objective: 03/20/17 12:19 Vital Signs Temperature 98.4 F 03/20/17 10:00 Pulse Rate 114 H 03/20/17 10:00 Respiratory Rate 20 03/20/17 10:00 Blood Pressure 128/89 03/20/17 10:00 O2 Sat by Pulse Oximetry (%) Laboratory Tests 03/19/17 03/20/17 03/20/17 21:30 07:00 07:00 WBC 8.7 RBC 4.34 Hgb 9.9 L Hct 31.9 L MCV 73.4 L MCH 22.7 L MCHC 31.0 L RDW 22.8 H Plt Count 254 MPV 10.1 Hypochromic-Microcytic 3+ Microcytosis 2+ Target Cells 2+ Sodium 144 Potassium 3.9 Chloride 108 H Carbon Dioxide 23 Anion Gap 13 BUN 16 D Creatinine 1.0 Creat Clearance w eGFR 57.78 Random Glucose 105 Calcium 9.0 Total Bilirubin 0.4 D AST 9 L D ALT 15 Alkaline Phosphatase 109 Total Protein 6.8 Albumin 3.6 Urine Color Ltyellow Urine Appearance Clear Urine pH 5.0 Ur Specific [place] >= 1.030 H Urine Protein 2+ H Urine Glucose (UA) Negative Urine Ketones Negative Urine Blood Negative Urine Nitrite Negative Urine Bilirubin Negative Urine Urobilinogen Negative Ur Leukocyte Esterase 2+ H Urine RBC <1 Urine WBC 7 Ur Epithelial Cells Rare Urine Bacteria Few Urine Mucus Few awake/alert ambulating no acute distress Assessment: 03/20/17 12:19 withdrawal sx Plan: continue detox increase fluids vitamin A&D ointment iron supplement
[2017-03-20] MEDS: cloNIDine HCL 0.1 MG TABLET PO PRN (13:04)
[2017-03-20] MEDS: FERROUS SO4 325 MG TABLET (FP) PO SCH (17:06)
[2017-03-20] MEDS: VITAMINS A AND D TOPICAL OINTMENT 60 GM TUBE TP SCH ×2 (17:09→23:09)
[2017-03-20] MEDS: ALBUTEROL SO4 6.7 GM HFA INHALER IH PRN (20:28)
[2017-03-20] MEDS: THIAMINE HCL 100 MG TABLET (FP) PO SCH (22:13)
[2017-03-20] MEDS: diphenhydrAMINE HCL 50 MG CAPSULE PO PRN (22:14)
[2017-03-21] MEDS: MOMETASONE FUROATE 220 MCG/IH INHALER IH PRN ×2 (03:34→22:33)
[2017-03-21] MEDS: VITAMINS A AND D TOPICAL OINTMENT 60 GM TUBE TP SCH ×3 (05:50→17:23)
[2017-03-21] MEDS: FERROUS SO4 325 MG TABLET (FP) PO SCH ×3 (08:15→17:18)
[2017-03-21] MEDS ORDERED: METHADONE HCL 5 MG TABLET (FOR DETOX USE ONLY) PO ONE (10:00)
[2017-03-21] MEDS: RITONAVIR 100 MG TABLET PO SCH (10:38)
[2017-03-21] MEDS: DARUNAVIR ETHANOLATE 800 MG TAB PO SCH (10:39)
[2017-03-21] MEDS: PRENATAL VITAMINS W/ FOLIC ACID TABLET (FP) PO SCH (10:39)
[2017-03-21] MEDS: PATIENT'S OWN MEDICATION (NON-FORMULARY) (Salmeterol Xinafoate [Serevent Diskus] 50 MCG) IH SCH ×2 (10:40→22:31)
[2017-03-21] MEDS: ALBUTEROL SO4 6.7 GM HFA INHALER IH PRN (10:41)
[2017-03-21] MEDS: RALTEGRAVIR POTASSIUM 400 MG TAB PO SCH (10:41)
[2017-03-21] MEDS: diazePAM 5 MG TABLET PO PRN (10:44)
[2017-03-21] MEDS: cloNIDine HCL 0.1 MG TABLET PO PRN (10:52)
--- NOTE | 2017-03-21 12:02 | PN ---
BHS COWS - Scale Resting Pulse: 2= [place] 101-120 Sweatin=Flushed/Facial Moisture Restless Observation: 1= Difficult to Sit Still Pupil Size: 0= Normal to Room Light Bone or Joint Aches: 2= Severe Diffuse Aches Runny Nose/ Eye Tearin= Runny Nose/Eyes GI Upset > 30mins: 2= Nausea/Diarrhea Tremor Observation of Outstretched Hands: 2= Slight Tremor Visible Yawning Observation: 1= 1-2x During Session Anxiety or Irritability: 2=Irritable/Anxious Goose Flesh Skin: 0=Smooth Skin COWS Score: 16 BHS Progress Note (SOAP) Subjective: Anxiety,tremors,sweating,interrupted sleep,restless,muscle aches. Objective: 03/21/17 12:03 Vital Signs - 8 hr 03/21/17 03/21/17 06:00 09:55 Temperature 98.4 F 98.4 F Pulse Rate 113 H 113 H Respiratory 18 20 Rate Blood Pressure 123/78 149/95 Laboratory Tests 03/19/17 03/20/17 03/20/17 21:30 07:00 07:00 WBC 8.7 RBC 4.34 Hgb 9.9 L Hct 31.9 L MCV 73.4 L MCH 22.7 L MCHC 31.0 L RDW 22.8 H Plt Count 254 MPV 10.1 Hypochromic-Microcytic 3+ Microcytosis 2+ Target Cells 2+ Sodium 144 Potassium 3.9 Chloride 108 H Carbon Dioxide 23 Anion Gap 13 BUN 16 D Creatinine 1.0 Creat Clearance w eGFR 57.78 Random Glucose 105 Calcium 9.0 Total Bilirubin 0.4 D AST 9 L D ALT 15 Alkaline Phosphatase 109 Total Protein 6.8 Albumin 3.6 Urine Color Ltyellow Urine Appearance Clear Urine pH 5.0 Ur Specific [place] >= 1.030 H Urine Protein 2+ H Urine Glucose (UA) Negative Urine Ketones Negative Urine Blood Negative Urine Nitrite Negative Urine Bilirubin Negative Urine Urobilinogen Negative Ur Leukocyte Esterase 2+ H Urine RBC <1 Urine WBC 7 Ur Epithelial Cells Rare Urine Bacteria Few Urine Mucus Few RPR Titer 03/20/17 07:00 WBC RBC Hgb Hct MCV MCH MCHC RDW Plt Count MPV Hypochromic-Microcytic Microcytosis Target Cells Sodium Potassium Chloride Carbon Dioxide Anion Gap BUN Creatinine Creat Clearance w eGFR Random Glucose Calcium Total Bilirubin AST ALT Alkaline Phosphatase Total Protein Albumin Urine Color Urine Appearance Urine pH Ur Specific [place] Urine Protein Urine Glucose (UA) Urine Ketones Urine Blood Urine Nitrite Urine Bilirubin Urine Urobilinogen Ur Leukocyte Esterase Urine RBC Urine WBC Ur Epithelial Cells Urine Bacteria Urine Mucus RPR Titer Nonreactive labs noted Assessment: 03/21/17 12:03 Withdrawal sx. Plan: Continue detox
[2017-03-21] MEDS: hydrOXYzine PAMOATE 50 MG CAPSULE (FP) PO PRN (22:31)
[2017-03-21] MEDS: THIAMINE HCL 100 MG TABLET (FP) PO SCH (22:31)
[2017-03-22] MEDS: VITAMINS A AND D TOPICAL OINTMENT 60 GM TUBE TP SCH ×4 (00:39→17:22)
[2017-03-22] MEDS: FERROUS SO4 325 MG TABLET (FP) PO SCH ×3 (07:39→17:21)
[2017-03-22] MEDS ORDERED: METHADONE HCL 5 MG TABLET (FOR DETOX USE ONLY) PO ONE (10:00)
[2017-03-22] MEDS: PRENATAL VITAMINS W/ FOLIC ACID TABLET (FP) PO SCH (10:27)
[2017-03-22] MEDS: DARUNAVIR ETHANOLATE 800 MG TAB PO SCH (10:27)
[2017-03-22] MEDS: RITONAVIR 100 MG TABLET PO SCH (10:27)
[2017-03-22] MEDS: RALTEGRAVIR POTASSIUM 400 MG TAB PO SCH (10:27)
[2017-03-22] MEDS: PATIENT'S OWN MEDICATION (NON-FORMULARY) (Salmeterol Xinafoate [Serevent Diskus] 50 MCG) IH SCH ×2 (10:28→22:10)
[2017-03-22] MEDS: MOMETASONE FUROATE 220 MCG/IH INHALER IH PRN ×2 (10:28→18:02)
[2017-03-22] MEDS: diazePAM 5 MG TABLET PO PRN ×2 (10:31→15:35)
--- NOTE | 2017-03-22 10:40 | PN ---
S Progress Note (SOAP) Subjective: Sweating,interrupted sleep,restless. Objective: 03/22/17 10:39 Vital Signs - 8 hr 03/22/17 03/22/17 03:30 06:00 Temperature 97.7 F Pulse Rate 101 H Respiratory 18 18 Rate Blood Pressure 131/83 Laboratory Last Values WBC 8.7 K/mm3 (4.0-10.0) 03/20/17 07:00 RBC 4.34 M/mm3 (3.60-5.2) 03/20/17 07:00 Hgb 9.9 GM/dL (10.7-15.3) L 03/20/17 07:00 Hct 31.9 % (32.4-45.2) L 03/20/17 07:00 MCV 73.4 fl (80-96) L 03/20/17 07:00 MCH 22.7 pg (25.7-33.7) L 03/20/17 07:00 MCHC 31.0 g/dl (32.0-36.0) L 03/20/17 07:00 RDW 22.8 % (11.6-15.6) H 03/20/17 07:00 Plt Count 254 K/MM3 (134-434) 03/20/17 07:00 MPV 10.1 fl (7.5-11.1) 03/20/17 07:00 Hypochromic-Microcytic 3+ 03/20/17 07:00 Microcytosis 2+ 03/20/17 07:00 Target Cells 2+ 03/20/17 07:00 Sodium 144 mmol/L (136-145) 03/20/17 07:00 Potassium 3.9 mmol/L (3.5-5.1) 03/20/17 07:00 Chloride 108 mmol/L (98-107) H 03/20/17 07:00 Carbon Dioxide 23 mmol/L (21-32) 03/20/17 07:00 Anion Gap 13 (8-16) 03/20/17 07:00 BUN 16 mg/dL (7-18) D 03/20/17 07:00 Creatinine 1.0 mg/dL (0.55-1.02) 03/20/17 07:00 Creat Clearance w eGFR 57.78 (>60) 03/20/17 07:00 Random Glucose 105 mg/dL (74-106) 03/20/17 07:00 Calcium 9.0 mg/dL (8.5-10.1) 03/20/17 07:00 Total Bilirubin 0.4 mg/dL (0.2-1.0) D 03/20/17 07:00 AST 9 U/L (15-37) L D 03/20/17 07:00 ALT 15 U/L (12-78) 03/20/17 07:00 Alkaline Phosphatase 109 U/L (45-117) 03/20/17 07:00 Total Protein 6.8 g/dl (6.4-8.2) 03/20/17 07:00 Albumin 3.6 g/dl (3.4-5.0) 03/20/17 07:00 Urine Color Ltyellow 03/19/17 21:30 Urine Appearance Clear 03/19/17 21:30 Urine pH 5.0 (5.0-8.0) 03/19/17 21:30 Ur Specific [place] >= 1.030 (1.005-1.025) H 03/19/17 21:30 Urine Protein 2+ (NEGATIVE) H 03/19/17 21:30 Urine Glucose (UA) Negative (NEGATIVE) 03/19/17 21:30 Urine Ketones Negative (NEGATIVE) 03/19/17 21:30 Urine Blood Negative (NEGATIVE) 03/19/17 21:30 Urine Nitrite Negative (NEGATIVE) 03/19/17 21:30 Urine Bilirubin Negative (NEGATIVE) 03/19/17 21:30 Urine Urobilinogen Negative mg/dL (0.2-1.0) 03/19/17 21:30 Ur Leukocyte Esterase 2+ (NEGATIVE) H 03/19/17 21:30 Urine RBC <1 /hpf (0-3) 03/19/17 21:30 Urine WBC 7 /hpf (3-5) 03/19/17 21:30 Ur Epithelial Cells Rare /hpf (FEW) 03/19/17 21:30 Urine Bacteria Few /hpf (NONE SEEN) 03/19/17 21:30 Urine Mucus Few 03/19/17 21:30 RPR Titer Nonreactive (NONREACTIVE) 03/20/17 07:00 labs noted Assessment: 03/22/17 10:40 Withdrawal sx. Plan: Continue detox
[2017-03-22] MEDS: ALBUTEROL SO4 6.7 GM HFA INHALER IH PRN (18:02)
[2017-03-22] MEDS: diphenhydrAMINE HCL 50 MG CAPSULE PO PRN (22:09)
[2017-03-22] MEDS: THIAMINE HCL 100 MG TABLET (FP) PO SCH (22:10)
[2017-03-23] MEDS: VITAMINS A AND D TOPICAL OINTMENT 60 GM TUBE TP SCH ×5 (00:30→22:59)
[2017-03-23] MEDS: ALBUTEROL SO4 6.7 GM HFA INHALER IH PRN ×3 (06:41→22:46)
[2017-03-23] MEDS: MOMETASONE FUROATE 220 MCG/IH INHALER IH PRN (06:41)
[2017-03-23] MEDS: cloNIDine HCL 0.1 MG TABLET PO PRN ×2 (06:46→17:32)
[2017-03-23] MEDS: FERROUS SO4 325 MG TABLET (FP) PO SCH ×3 (08:19→17:28)
--- NOTE | 2017-03-23 09:34 | PN ---
BHS Progress Note (SOAP) Subjective: sweats restless Objective: 03/23/17 09:34 Vital Signs Temperature 97.7 F 03/23/17 10:00 Pulse Rate 94 03/23/17 10:00 Respiratory Rate 18 03/23/17 10:00 Blood Pressure 112/76 03/23/17 10:00 O2 Sat by Pulse Oximetry (%) awake/alert ambulating no acute distress Assessment: 03/23/17 09:40 withdrawal sx Plan: continue detox increased fluids d/c in am
[2017-03-23] MEDS ORDERED: METHADONE HCL 10 MG TABLET (FOR DETOX USE ONLY) PO ONE (10:00)
[2017-03-23] MEDS: DARUNAVIR ETHANOLATE 800 MG TAB PO SCH (10:42)
[2017-03-23] MEDS: RITONAVIR 100 MG TABLET PO SCH (10:42)
[2017-03-23] MEDS: PRENATAL VITAMINS W/ FOLIC ACID TABLET (FP) PO SCH (10:43)
[2017-03-23] MEDS: PATIENT'S OWN MEDICATION (NON-FORMULARY) (Salmeterol Xinafoate [Serevent Diskus] 50 MCG) IH SCH ×2 (10:43→22:46)
[2017-03-23] MEDS: RALTEGRAVIR POTASSIUM 400 MG TAB PO SCH (10:43)
[2017-03-23] MEDS: LOPERAMIDE HCL 2 MG CAPSULE PO PRN ×2 (10:46→17:29)
[2017-03-23] MEDS: hydrOXYzine PAMOATE 50 MG CAPSULE (FP) PO PRN ×2 (10:48→17:32)
[2017-03-23] MEDS: diphenhydrAMINE HCL 50 MG CAPSULE PO PRN (22:45)
[2017-03-23] MEDS: THIAMINE HCL 100 MG TABLET (FP) PO SCH (22:45)
[2017-03-24] MEDS: LOPERAMIDE HCL 2 MG CAPSULE PO PRN (02:06)
[2017-03-24] MEDS: hydrOXYzine PAMOATE 50 MG CAPSULE (FP) PO PRN ×2 (05:43→10:55)
[2017-03-24] MEDS ORDERED: METHADONE HCL 5 MG TABLET (FOR DETOX USE ONLY) PO ONE (06:00)
[2017-03-24] MEDS: VITAMINS A AND D TOPICAL OINTMENT 60 GM TUBE TP SCH (07:55)
[2017-03-24] MEDS: FERROUS SO4 325 MG TABLET (FP) PO SCH (07:57)
--- NOTE | 2017-03-24 08:47 | DS ---
[facility] Detox Discharge Summary Admission Date: 03/19/17 Discharge Date: 03/24/17 - History Present History: Alcohol Dependence, Cocaine Dependence, Opioid Dependence - Physical Exam Results Vital Signs: Vital Signs Temperature 97.3 F L 03/24/17 06:00 Pulse Rate 83 03/24/17 06:00 Respiratory Rate 18 03/24/17 06:00 Blood Pressure 118/81 03/24/17 06:00 O2 Sat by Pulse Oximetry (%) - Treatment Hospital Course: Detox Protocol Followed, Detoxed Safely, Responded well, Discharged Condition Good, Rehab Referral Accepted - Medication Discharge Medications: Ambulatory Orders Albuterol Sulfate Inhaler - [Ventolin HFA Inhaler -] 1 inh PO QID PRN 07/24/14 Darunavir Ethanolate [Prezista] 800 mg PO DAILY 07/24/14 Raltegravir Potassium [Isentress] 800 mg PO DAILY 07/24/14 Ritonavir [Norvir] 100 mg PO DAILY 07/24/14 Budesonide/Formeterol Fumarate [SYMBICORT 160/4.5mcg -] 1 inh PO BID 03/16/16 Dronabinol [Marinol] 5 mg PO TID 03/16/16 Atorvastatin Ca [Lipitor] 20 mg PO HS 03/19/17 Ergocalciferol [Drisdol -] 50,000 units PO WEEKLY 03/19/17 Ferrous Sulfate 325 mg PO BID 03/19/17 Salmeterol Xinafoate [Serevent Diskus] 50 mcg IH BID 03/19/17 - Diagnosis (1) Asthma Current Visit: Yes Status: Chronic (2) COPD (chronic obstructive pulmonary disease) Current Visit: Yes Status: Chronic Qualifiers: COPD type: chronic bronchitis (3) HIV Current Visit: Yes Status: Chronic (4) Hepatitis C Current Visit: Yes Status: Chronic Qualifiers: Viral hepatitis chronicity: chronic Hepatic coma status: without hepatic coma Qualified Code(s): B18.2 - Chronic viral hepatitis C (5) Opioid dependence with withdrawal Current Visit: Yes Status: Chronic (6) Unsteady gait Current Visit: Yes Status: Chronic (7) Alcohol dependence Current Visit: Yes Status: Chronic (8) Cocaine abuse Current Visit: Yes Status: Chronic (9) Bronchospasm Current Visit: No Status: Acute (10) Exacerbation of asthma Current Visit: No Status: Acute (11) Lower back pain Current Visit: Yes Status: Chronic Qualifiers: Chronicity: chronic Sciatica laterality: sciatica laterality unspecified (12) S/P hysterectomy Current Visit: No Status: Acute (13) Status post right hip replacement Current Visit: No Status: Acute (14) Status post right knee replacement Current Visit: No Status: Acute (15) Weight loss Current Visit: No Status: Acute (16) CHRONIC RT HIP PAIN Current Visit: No Status: Chronic (17) Gastroenteritis Current Visit: No Status: Chronic (18) Insomnia Current Visit: No Status: Chronic - AMA Did Patient Leave Against Medical Advice: No
[2017-03-24] MEDS: PRENATAL VITAMINS W/ FOLIC ACID TABLET (FP) PO SCH (09:13)
[2017-03-24] MEDS: DARUNAVIR ETHANOLATE 800 MG TAB PO SCH (09:14)
[2017-03-24] MEDS: RITONAVIR 100 MG TABLET PO SCH (09:14)
[2017-03-24] MEDS: RALTEGRAVIR POTASSIUM 400 MG TAB PO SCH (09:14)
[2017-03-24 12:20] VITALS: BP 119/61; PULSE 86; TEMP 98.6
== END 2017-03-24 11:01 | disposition home or self-care (01) | DRG 773 ==
LOC: YASAS 10:39 → Y6N 16:56
PROVIDERS: ADMIT Internal Medicine; ATTEND Internal Medicine
PROC: HZ2ZZZZ Detoxification Services for Substance Abuse Treatment (ICD-10-PCS; principal; 2017-03-19)
DX: F11.23 Opioid dependence with withdrawal (principal); F10.230 Alcohol dependence with withdrawal, uncomplicated; F14.10 Cocaine abuse, uncomplicated; J45.901 Unspecified asthma with (acute) exacerbation; J44.9 Chronic obstructive pulmonary disease, unspecified; Z21 Asymptomatic human immunodeficiency virus [HIV] infection status; B18.2 Chronic viral hepatitis C; R26.81 Unsteadiness on feet; M54.5 Low back pain; M25.551 Pain in right hip; G89.29 Other chronic pain; K52.9 Noninfective gastroenteritis and colitis, unspecified; G47.00 Insomnia, unspecified; D50.9 Iron deficiency anemia, unspecified; Z92.21 Personal history of antineoplastic chemotherapy; Z90.710 Acquired absence of both cervix and uterus; Z96.641 Presence of right artificial hip joint; Z96.651 Presence of right artificial knee joint; Z87.898 Personal history of other specified conditions; Z87.891 Personal history of nicotine dependence; Z90.5 Acquired absence of kidney; Z85.048 Personal history of other malignant neoplasm of rectum, rectosigmoid junction, and anus; Z85.41 Personal history of malignant neoplasm of cervix uteri
CPT/HCPCS: 36415; 80053; 81003; 81015; 85027; 86593; 93005; 93010

== ENCOUNTER 2017-08-07 14:13 | Inpatient (IN) | payer OTHER ==
[~2017-08-07 14:13] MED LIST: RITONAVIR 100 MG TABLET PO SCH
[2017-08-07 15:41] VITALS: BMI 23.0
--- NOTE | 2017-08-07 16:57 | HP ---
COWS - Scale Resting Pulse: 2= [place] 101-120 Sweatin= Chills/Flushing Restless Observation: 0= Sits Still Pupil Size: 0= Normal to Room Light Bone or Joint Aches: 2= Severe Diffuse Aches Runny Nose/ Eye Tearin= None GI Upset > 30mins: 2= Nausea/Diarrhea Tremor Observation: 2= Slight Tremor Visible Yawning Observation: 1= 1-2x During Session Anxiety or Irritability: 2=Irritable/Anxious Goose Flesh Skin: 3=Piloerection COWS Score: 15 Admission ROS S - HPI Chief Complaint: "I' need to Detox off of Percocet." Patient is here to Detox from Percocet (Non-Prescribed). Allergies/Adverse Reactions: Allergies Allergy/AdvReac Type Severity Reaction Status Date / Time shellfish derived Allergy Mild Hives Verified 08/07/17 16:33 Sulfa (Sulfonamide Allergy Verified 08/07/17 16:33 Antibiotics) sulfamethoxazole Allergy Verified 08/07/17 16:33 [From Bactrim] trimethoprim [From Bactrim] Allergy Verified 08/07/17 16:33 ibuprofen AdvReac Verified 08/07/17 16:33 ketorolac tromethamine AdvReac Verified 08/07/17 16:33 [From Toradol] History of Present Illness: Pt. is a 52 YO male here to Detox from Percocet (non-prescribed). Patient has had several previous Detox admissions at [facility] in past (last: 02/2017). Patient started using Percocet (prescribed) in 2014 after Right Hip Replacement. Patient began using non-prescription Percocet after Left Hip Replacement in 2016. Exam Limitations: No Limitations - Ebola screening Have you traveled outside of the country in the last 21 days: No (N) Have you had contact with anyone from an Ebola affected area: No Have you been sick,other than usual withdrawal symptoms: No Do you have a fever: No - Review of Systems Constitutional: Chills, Diaphoresis, Fever, Loss of Appetite, Malaise, Night Sweats, Changes in sleep EENT: reports: Blurred Vision Respiratory: reports: Cough, SOB with Exertion Cardiac: reports: No Symptoms Reported GI: reports: Constipated, Indigestion (Peptic Ulcer.) : reports: No Symptoms Reported Musculoskeletal: reports: Joint Pain, Muscle Pain, Joint Stiffness Integumentary: reports: No Symptoms Reported Neuro: reports: Headache, Numbness (Right Arm and Hand.), Tingling (Right Arm and Hand.), Tremors Endocrine: reports: No Symptoms Reported Hematology: reports: Anemia (Iron-Deficiency type.) Psychiatric: reports: Judgement Intact, Mood/Affect Appropiate, Orientated x3, Anxious Other Systems: Reviewed and Negative Patient History - Patient Medical History Hx Anemia: Yes (MELISSA ) Hx Asthma: Yes (Bronchial Asthma, since .) Hx Chronic Obstructive Pulmonary Disease (COPD): Yes Hx Cancer: Yes (Rectal Carcinoma, Cervical CA, Renal Mass Treated c Chemo/RT (2010)) Hx Cardiac Disorders: No Hx Congestive Heart Failure: No Hx Hypertension: No Hx Hypercholesterolemia: No Hx Pacemaker: No HX Cerebrovascular Accident: No Hx Seizures: No Hx Dementia: No Hx Diabetes: No Hx Gastrointestinal Disorders: Yes (Peptic Ulcer.) Hx Liver Disease: No Hx Genitourinary Disorders: No Hx Sexually Transmitted Disorders: No Hx Renal Disease (ESRD): No Hx Thyroid Disease: No Hx Human Immunodeficiency Virus (HIV): Yes (SINCE 1998; On meds.) Hx Hepatitis C: Yes (TREATED; unable to recall when completed.) Hx Depression: No Hx Suicide Attempt: No (PATIENT DENIES CURRENT SI / HI.) Hx Bipolar Disorder: No Hx Schizophrenia: No Other Medical History: DENIES. - Patient Surgical History Past Surgical History: Yes Hx Genitourinary Surgery: Yes (NEPHRECTOMY RIGHT IN 10/2015 [facility]) Hx Orthopedic Surgery: Yes (S/P RIGHT HIP (2014), RIGHT KNEE REPLACEMENT (12/08) ) Hx Hysterectomy: Yes Other Surgical History: Hysterectomy (2004), Port Removed L hip replacement 05/10 Anesthesia Reaction: No - PPD History Previous Implant?: Yes Documented Results: Negative w/proof Implanted On Prior R Admission?: Yes Date: 03/21/17 Results: 0 mm PPD to be Administered?: No - Reproductive History Patient is a Female of Child Bearing Age (11 -55 yrs old): Yes Last Menstrual Period: 11/22/04 Patient : No - Smoking Cessation Smoking history: Former smoker Have you smoked in the past 12 months: No Aproximately how many cigarettes per day: 0 If you are a former smoker, when did you quit?: 2012 Cigars Per Day: 0 Hx Chewing Tobacco Use: No Initiated information on smoking cessation: Yes 'Breaking Loose' booklet given: 08/07/17 (GIVEN ON UNIT.) - Substance & Tx. History Hx Alcohol Use: No Hx Substance Use: Yes Substance Use Type: Opiates Hx Substance Use Treatment: Yes (Previous Detox admissions at [facility] (Last: 2016).) - Substances Abused PERCOCET Route: Oral Frequency: Daily Amount used: 40mg Age of first use: 45 Date of Last Use: 08/07/17 Family Disease History - Family Disease History Family Disease History: CA: Father (THROAT CA), Mother (BR CA ) Admission Physical Exam S - Vital Signs Vital Signs: Vital Signs - 24 hr 08/07/17 15:37 Temperature 98.3 F Pulse Rate 112 H Respiratory 19 Rate Blood Pressure 152/96 - Physical General Appearance: Yes: No Apparent Distress, Nourished, Appropriately Dressed , Tremorous, Irritable, Anxious, Other (Patient ambulates with assistance of a walker.) HEENTM: Yes: Hearing grossly Normal, Normocephalic, Normal Voice, MATTHEW, Pharynx Normal Respiratory: Yes: Chest Non-Tender, Lungs Clear, No Respiratory Distress, No Accessory Muscle Use Neck: Yes: No masses,lesions,Nodules, Supple, Trachea in good position Breast: Yes: Breast Exam Deferred Cardiology: Yes: Regular Rhythm, Regular Rate, S1, S2 Abdominal: Yes: Normal Bowel Sounds, Non Tender, Flat, Soft Genitourinary: Yes: Within Normal Limits Back: Yes: Decreased Range of Motion Musculoskeletal: Yes: Joint Stiffness, Muscle Pain Extremities: Yes: Tremors Neurological: Yes: Fully Oriented, Alert, Normal Mood/Affect, Normal Response Integumentary: Yes: Normal Color, Dry, Warm Lymphatic: Yes: Within Normal Limits - Diagnostic (1) S/P hysterectomy Current Visit: Yes Status: Resolved (2) Status post right hip replacement Current Visit: Yes Status: Resolved (3) Status post right knee replacement Current Visit: Yes Status: Resolved (4) COPD (chronic obstructive pulmonary disease) Current Visit: Yes Status: Chronic Qualifiers: COPD type: unspecified COPD Qualified Code(s): J44.9 - Chronic obstructive pulmonary disease, unspecified (5) HIV Current Visit: Yes Status: Chronic (6) Hepatitis C Current Visit: Yes Status: Resolved Qualifiers: Viral hepatitis chronicity: chronic Hepatic coma status: without hepatic coma Qualified Code(s): B18.2 - Chronic viral hepatitis C Comment: Completed Treatment. (7) Opioid dependence with withdrawal Current Visit: Yes Status: Acute (8) Peptic ulcer Current Visit: Yes Status: Chronic (9) History of kidney cancer Current Visit: Yes Status: Chronic (10) History of rectal cancer Current Visit: Yes Status: Chronic (11) History of cervical cancer Current Visit: Yes Status: Chronic (12) S/p nephrectomy Current Visit: Yes Status: Resolved Comment: Right Kidney. (13) Walker as ambulation aid Current Visit: Yes Status: Acute Cleared for Admission [facility] - Detox or Rehab [facility] Level of Care: Medically Managed Detox Regimen/Protocol: Methadone [facility] Breath Alcohol Content Breath Alcohol Content: 0 Urine Pregancy Test - Result Urine Test Results: Negative- NO Line Present Urine Drug Screen - Results Drug Screen Negative: No Urine Drug Screen Results: MTD-Methadone, OXY-Oxycodone
[2017-08-07] MEDS ORDERED: guaiFENesin/D-METHORPHAN HB 10 ML UNIT-DOSE CUPS PO PRN (17:32)
[2017-08-07] MEDS ORDERED: MAGNESIUM CITRATE 300 ML BOTTLE PO PRN (17:32)
[2017-08-07] MEDS ORDERED: P-EPHED 60MG/TRIPROLIDI 2.5MG TABLET PO PRN (17:32)
[2017-08-07] MEDS ORDERED: LOPERAMIDE HCL 2 MG CAPSULE PO PRN (17:32)
[2017-08-07] MEDS ORDERED: MENTHOL/PHENOL 1 EACH UD MM PRN (17:32)
[2017-08-07] MEDS ORDERED: ACETAMINOPHEN 325 MG TABLET (FP) PO PRN (17:32)
[2017-08-07] MEDS ORDERED: MAGNESIUM HYDROX 2400MG/30ML ORAL SUSPENSION 30 ML CUP PO PRN (17:32)
[2017-08-07] MEDS ORDERED: METHADONE HCL 10 MG TABLET (FOR DETOX USE ONLY) PO ONE ×2 (18:15→23:00)
[2017-08-07] MEDS: FERROUS SO4 325 MG TABLET (FP) PO SCH (18:38)
[2017-08-07] MEDS: diazePAM 5 MG TABLET PO PRN ×2 (18:39→22:42)
[2017-08-07] MEDS: MAG HYDROX/AL HYDROX/SIMETH 30 ML UNIT-DOSE CUP PO PRN (18:41)
[2017-08-07] MEDS: ALBUTEROL SO4 18 GM HFA INHALER IH PRN (18:54)
[2017-08-07 22:02] LABS: URINE APPEARANCE SLCLOUDY; URINE BILIRUBIN NEGATIVE (NEGATIVE); URINE BLOOD NEGATIVE (NEGATIVE); URINE COLOR LTYELLOW; URINE GLUCOSE (UA) NEGATIVE (NEGATIVE); URINE KETONE NEGATIVE (NEGATIVE); URINE NITRITE NEGATIVE (NEGATIVE); URINE UROBILINOGEN NEGATIVE mg/dL (0.2-1.0)
[2017-08-07 22:03] LABS: URINE LEUK ESTERASE 2+ (NEGATIVE); URINE PROTEIN 2+ (NEGATIVE)
[2017-08-07 22:07] LABS: URINE BACTERIA FEW /hpf (NONE SEEN); URINE HYALINE CAST 1 /lpf; URINE MUCUS RARE; URINE RBC 1 /hpf (0-3); URINE WBC 8 /hpf (3-5)
[2017-08-07] MEDS: BUDESONIDE/FORMETEROL FUMARATE 160/4.5 mcg INHALER IH SCH (22:41)
[2017-08-07] MEDS: THIAMINE HCL 100 MG TABLET (FP) PO SCH (22:42)
[2017-08-08] MEDS: diazePAM 5 MG TABLET PO PRN ×3 (05:49→22:43)
[2017-08-08] MEDS: FERROUS SO4 325 MG TABLET (FP) PO SCH ×2 (08:35→17:58)
[2017-08-08] MEDS ORDERED: METHADONE HCL 10 MG TABLET (FOR DETOX USE ONLY) PO ONE (10:00)
[2017-08-08] MEDS ORDERED: DARUNAVIR ETHANOLATE 800 MG TAB PO SCH (10:00)
[2017-08-08 10:45] LABS: MCH 24.9 pg (25.7-33.7); MCHC 31.2 g/dl (32.0-36.0); MEAN CELL VOLUME 79.8 fl (80-96); MEAN PLT VOLUME 8.6 fl (7.5-11.1); PLATELET COUNT 307 K/MM3 (134-434); RDW 19.4 % (11.6-15.6); WHITE BLOOD COUNT 10.7 K/mm3 (4.0-10.0)
[2017-08-08] MEDS: PRENATAL VITAMINS W/ FOLIC ACID TABLET (FP) PO SCH (10:49)
[2017-08-08] MEDS: RALTEGRAVIR POTASSIUM 400 MG TAB PO SCH (10:49)
[2017-08-08] MEDS: RANITIDINE HCL 150 MG TABLET (FP) PO SCH (10:49)
[2017-08-08] MEDS: BUDESONIDE/FORMETEROL FUMARATE 160/4.5 mcg INHALER IH SCH ×2 (10:50→22:41)
[2017-08-08] MEDS: RITONAVIR 100 MG TABLET PO SCH (10:50)
--- NOTE | 2017-08-08 11:03 | PN ---
BHS COWS - Scale Resting Pulse: 4= [place] > 121 Sweatin= Chills/Flushing Restless Observation: 1= Difficult to Sit Still Pupil Size: 1= Pupils >than Normal Bone or Joint Aches: 1= Mild Discomfort Runny Nose/ Eye Tearin= Nasal Congestion GI Upset > 30mins: 0= None Tremor Observation of Outstretched Hands: 2= Slight Tremor Visible Yawning Observation: 1= 1-2x During Session Anxiety or Irritability: 2=Irritable/Anxious Goose Flesh Skin: 0=Smooth Skin COWS Score: 14 S Progress Note (SOAP) Subjective: withdrawal sx Objective: 08/08/17 11:01 a little sleepy Last Vital Signs Temp Pulse Resp BP Pulse Ox 98.2 F 121 H 20 109/77 08/08/17 10:00 08/08/17 10:00 08/08/17 10:00 08/08/17 10:00 Laboratory Last Values WBC 10.7 K/mm3 (4.0-10.0) H 08/08/17 08:00 RBC 4.66 M/mm3 (3.60-5.2) 08/08/17 08:00 Hgb 11.6 GM/dL (10.7-15.3) D 08/08/17 08:00 Hct 37.2 % (32.4-45.2) D 08/08/17 08:00 MCV 79.8 fl (80-96) L 08/08/17 08:00 MCH 24.9 pg (25.7-33.7) L 08/08/17 08:00 MCHC 31.2 g/dl (32.0-36.0) L 08/08/17 08:00 RDW 19.4 % (11.6-15.6) H D 08/08/17 08:00 Plt Count 307 K/MM3 (134-434) D 08/08/17 08:00 MPV 8.6 fl (7.5-11.1) D 08/08/17 08:00 Urine Color Ltyellow 08/07/17 21:00 Urine Appearance Slcloudy 08/07/17 21:00 Urine pH 5.0 (5.0-8.0) 08/07/17 21:00 Ur Specific [place] 1.019 (1.001-1.035) 08/07/17 21:00 Urine Protein 2+ (NEGATIVE) H 08/07/17 21:00 Urine Glucose (UA) Negative (NEGATIVE) 08/07/17 21:00 Urine Ketones Negative (NEGATIVE) 08/07/17 21:00 Urine Blood Negative (NEGATIVE) 08/07/17 21:00 Urine Nitrite Negative (NEGATIVE) 08/07/17 21:00 Urine Bilirubin Negative (NEGATIVE) 08/07/17 21:00 Urine Urobilinogen Negative mg/dL (0.2-1.0) 08/07/17 21:00 Urine WBC (Auto) 8 /hpf (3-5) 08/07/17 21:00 Urine RBC (Auto) 1 /hpf (0-3) 08/07/17 21:00 Ur Epithelial Cells Few /HPF (FEW) 08/07/17 21:00 Urine Bacteria Few /hpf (NONE SEEN) 08/07/17 21:00 Hyaline Casts 1 /lpf 08/07/17 21:00 Urine Mucus Rare 08/07/17 21:00 labs noted, hematology pending Assessment: 08/08/17 11:03 ambulates with walker, no acute distress noted Plan: Continue with detox
[2017-08-08 11:05] LABS: ALBUMIN 3.1 g/dl (3.4-5.0); ANION GAP 12 (8-16); CO2 24 mmol/L (21-32); GLUCOSE,RANDOM 96 mg/dL (74-106); SGOT/AST 11 U/L (15-37); SGPT/ALT 23 U/L (12-78)
[2017-08-08 11:06] LABS: ALK PHOS 59 U/L (45-117); BILIRUBIN,TOTAL 0.4 mg/dL (0.2-1.0); TOT PROT 6.4 g/dl (6.4-8.2)
[2017-08-08] MEDS: THIAMINE HCL 100 MG TABLET (FP) PO SCH (22:41)
[2017-08-08 23:35] LABS: URINE LEUK ESTERASE TRACE (NEGATIVE)
[2017-08-09] MEDS: diazePAM 5 MG TABLET PO PRN ×4 (06:08→22:35)
[2017-08-09] MEDS: ALBUTEROL SO4 18 GM HFA INHALER IH PRN ×2 (06:09→17:54)
[2017-08-09] MEDS: FERROUS SO4 325 MG TABLET (FP) PO SCH ×2 (08:08→17:49)
[2017-08-09] MEDS ORDERED: METHADONE HCL 5 MG TABLET (FOR DETOX USE ONLY) PO ONE (10:00)
[2017-08-09] MEDS: PRENATAL VITAMINS W/ FOLIC ACID TABLET (FP) PO SCH (10:43)
[2017-08-09] MEDS: BUDESONIDE/FORMETEROL FUMARATE 160/4.5 mcg INHALER IH SCH ×2 (10:43→22:35)
[2017-08-09] MEDS: RANITIDINE HCL 150 MG TABLET (FP) PO SCH (10:44)
[2017-08-09] MEDS: RALTEGRAVIR POTASSIUM 400 MG TAB PO SCH (10:44)
[2017-08-09] MEDS: RITONAVIR 100 MG TABLET PO SCH (10:44)
--- NOTE | 2017-08-09 11:14 | PN ---
BHS COWS - Scale Resting Pulse: 2= [place] 101-120 Sweatin= Chills/Flushing Restless Observation: 1= Difficult to Sit Still Pupil Size: 0= Normal to Room Light Bone or Joint Aches: 1= Mild Discomfort Runny Nose/ Eye Tearin= Nasal Congestion GI Upset > 30mins: 1= Stomach Cramp Tremor Observation of Outstretched Hands: 1= Tremor [place], Not Seen Yawning Observation: 0= None Anxiety or Irritability: 2=Irritable/Anxious Goose Flesh Skin: 0=Smooth Skin COWS Score: 10 BHS Progress Note (SOAP) Subjective: tremor anxiety worry about appetite Objective: 08/09/17 11:13 Vital Signs Temperature 98.8 F 08/09/17 06:00 Pulse Rate 110 H 08/09/17 06:00 Respiratory Rate 18 08/09/17 06:00 Blood Pressure 137/86 08/09/17 06:00 O2 Sat by Pulse Oximetry (%) Laboratory Last Values WBC 10.7 K/mm3 (4.0-10.0) H 08/08/17 08:00 RBC 4.66 M/mm3 (3.60-5.2) 08/08/17 08:00 Hgb 11.6 GM/dL (10.7-15.3) D 08/08/17 08:00 Hct 37.2 % (32.4-45.2) D 08/08/17 08:00 MCV 79.8 fl (80-96) L 08/08/17 08:00 MCH 24.9 pg (25.7-33.7) L 08/08/17 08:00 MCHC 31.2 g/dl (32.0-36.0) L 08/08/17 08:00 RDW 19.4 % (11.6-15.6) H D 08/08/17 08:00 Plt Count 307 K/MM3 (134-434) D 08/08/17 08:00 MPV 8.6 fl (7.5-11.1) D 08/08/17 08:00 Sodium 140 mmol/L (136-145) 08/08/17 08:00 Potassium 4.7 mmol/L (3.5-5.1) D 08/08/17 08:00 Chloride 104 mmol/L (98-107) 08/08/17 08:00 Carbon Dioxide 24 mmol/L (21-32) 08/08/17 08:00 Anion Gap 12 (8-16) 08/08/17 08:00 BUN 15 mg/dL (7-18) 08/08/17 08:00 Creatinine 1.0 mg/dL (0.55-1.02) 08/08/17 08:00 Creat Clearance w eGFR 57.78 (>60) 08/08/17 08:00 Random Glucose 96 mg/dL (74-106) 08/08/17 08:00 Calcium 9.0 mg/dL (8.5-10.1) 08/08/17 08:00 Total Bilirubin 0.4 mg/dL (0.2-1.0) 08/08/17 08:00 AST 11 U/L (15-37) L D 08/08/17 08:00 ALT 23 U/L (12-78) D 08/08/17 08:00 Alkaline Phosphatase 59 U/L (45-117) D 08/08/17 08:00 Total Protein 6.4 g/dl (6.4-8.2) 08/08/17 08:00 Albumin 3.1 g/dl (3.4-5.0) L 08/08/17 08:00 Urine Color Ltyellow 08/07/17 21:00 Urine Appearance Slcloudy 08/07/17 21:00 Urine pH 5.0 (5.0-8.0) 08/07/17 21:00 Ur Specific [place] 1.019 (1.001-1.035) 08/07/17 21:00 Urine Protein 2+ (NEGATIVE) H 08/07/17 21:00 Urine Glucose (UA) Negative (NEGATIVE) 08/07/17 21:00 Urine Ketones Negative (NEGATIVE) 08/07/17 21:00 Urine Blood Negative (NEGATIVE) 08/07/17 21:00 Urine Nitrite Negative (NEGATIVE) 08/07/17 21:00 Urine Bilirubin Negative (NEGATIVE) 08/07/17 21:00 Urine Urobilinogen Negative mg/dL (0.2-1.0) 08/07/17 21:00 Ur Leukocyte Esterase Trace (NEGATIVE) H 08/07/17 21:00 Urine WBC (Auto) 8 /hpf (3-5) 08/07/17 21:00 Urine RBC (Auto) 1 /hpf (0-3) 08/07/17 21:00 Ur Epithelial Cells Few /HPF (FEW) 08/07/17 21:00 Urine Bacteria Few /hpf (NONE SEEN) 08/07/17 21:00 Hyaline Casts 1 /lpf 08/07/17 21:00 Urine Mucus Rare 08/07/17 21:00 RPR Titer Nonreactive (NONREACTIVE) 08/08/17 08:00 lab noted Assessment: 08/09/17 11:13 withdrawal sx Plan: continue detox
[2017-08-09] MEDS: DRONABINOL 2.5 MG CAPSULE PO SCH ×2 (14:51→17:50)
[2017-08-09] MEDS: MAG HYDROX/AL HYDROX/SIMETH 30 ML UNIT-DOSE CUP PO PRN (14:52)
[2017-08-09] MEDS: THIAMINE HCL 100 MG TABLET (FP) PO SCH (22:35)
[2017-08-10] MEDS: DRONABINOL 2.5 MG CAPSULE PO SCH ×3 (07:24→18:13)
[2017-08-10] MEDS: FERROUS SO4 325 MG TABLET (FP) PO SCH ×2 (07:24→18:13)
[2017-08-10] MEDS ORDERED: HYDROCORTISONE 0.5% TOPICAL OINTMENT TUBE TP PRN (08:59)
[2017-08-10] MEDS ORDERED: METHADONE HCL 5 MG TABLET (FOR DETOX USE ONLY) PO ONE (10:00)
[2017-08-10] MEDS: RALTEGRAVIR POTASSIUM 400 MG TAB PO SCH (10:50)
[2017-08-10] MEDS: RANITIDINE HCL 150 MG TABLET (FP) PO SCH (10:51)
[2017-08-10] MEDS: BUDESONIDE/FORMETEROL FUMARATE 160/4.5 mcg INHALER IH SCH ×2 (10:51→22:29)
[2017-08-10] MEDS: PRENATAL VITAMINS W/ FOLIC ACID TABLET (FP) PO SCH (10:51)
[2017-08-10] MEDS: RITONAVIR 100 MG TABLET PO SCH (10:53)
[2017-08-10] MEDS: MAG HYDROX/AL HYDROX/SIMETH 30 ML UNIT-DOSE CUP PO PRN ×2 (10:59→18:15)
[2017-08-10] MEDS: diazePAM 5 MG TABLET PO PRN (11:01)
--- NOTE | 2017-08-10 11:09 | PN ---
BHS Progress Note (SOAP) Subjective: rash on my face sweats interrupted sleep Objective: 08/10/17 11:08 Vital Signs Temperature 97.9 F 08/10/17 10:45 Pulse Rate 114 H 08/10/17 10:45 Respiratory Rate 18 08/10/17 10:45 Blood Pressure 121/81 08/10/17 10:45 O2 Sat by Pulse Oximetry (%) aaox3 ambulating with wheelchair no acute distress Assessment: 08/10/17 11:08 mild withdrawal sx Plan: continue detox increase fluids hydrocortizone oint
[2017-08-10] MEDS: THIAMINE HCL 100 MG TABLET (FP) PO SCH (22:29)
--- NOTE | 2017-08-11 01:58 | EKG ---
Test Reason : Blood Pressure : / mmHG Vent. Rate : 107 BPM Atrial Rate : 107 BPM P-R Int : 142 ms QRS Dur : 070 ms QT Int : 328 ms P-R-T Axes : 053 035 061 degrees QTc Int : 437 ms SINUS TACHYCARDIA WITH OCCASIONAL PREMATURE VENTRICULAR COMPLEXES OTHERWISE NORMAL ECG WHEN COMPARED WITH ECG OF 19-MAR-2017 18:32, PREMATURE VENTRICULAR COMPLEXES ARE NOW PRESENT PREMATURE SUPRAVENTRICULAR COMPLEXES ARE NO LONGER PRESENT Confirmed by NICOLE LUNA, MOLLY ([id number]) on 08/11/2017 1:57:42 AM Referred By: Analy MADERA Confirmed By:MOLLY RIVERA MD
[2017-08-11] MEDS: ALBUTEROL SO4 18 GM HFA INHALER IH PRN ×3 (03:45→22:14)
[2017-08-11] MEDS: FERROUS SO4 325 MG TABLET (FP) PO SCH ×2 (07:59→18:55)
[2017-08-11] MEDS: DRONABINOL 2.5 MG CAPSULE PO SCH ×3 (08:00→18:55)
[2017-08-11] MEDS: MAG HYDROX/AL HYDROX/SIMETH 30 ML UNIT-DOSE CUP PO PRN ×2 (08:29→15:23)
[2017-08-11] MEDS ORDERED: METHADONE HCL 10 MG TABLET (FOR DETOX USE ONLY) PO ONE (10:00)
[2017-08-11] MEDS: PRENATAL VITAMINS W/ FOLIC ACID TABLET (FP) PO SCH (10:31)
[2017-08-11] MEDS: RANITIDINE HCL 150 MG TABLET (FP) PO SCH (10:31)
[2017-08-11] MEDS: BUDESONIDE/FORMETEROL FUMARATE 160/4.5 mcg INHALER IH SCH ×2 (10:31→22:13)
[2017-08-11] MEDS: RITONAVIR 100 MG TABLET PO SCH (10:31)
[2017-08-11] MEDS: RALTEGRAVIR POTASSIUM 400 MG TAB PO SCH (10:32)
--- NOTE | 2017-08-11 11:09 | PN ---
BHS Progress Note (SOAP) Subjective: sweats chronic body aches Objective: 08/11/17 11:08 Vital Signs Temperature 98.4 F 08/11/17 10:29 Pulse Rate 127 H 08/11/17 10:29 Respiratory Rate 18 08/11/17 10:29 Blood Pressure 121/83 08/11/17 10:29 O2 Sat by Pulse Oximetry (%) aaox3 ambulating no acute distress Assessment: 08/11/17 11:09 mild withdrawal sx Plan: continue detox increase fluids d/c in am
[2017-08-11] MEDS: THIAMINE HCL 100 MG TABLET (FP) PO SCH (22:14)
[2017-08-12] MEDS: ALBUTEROL SO4 18 GM HFA INHALER IH PRN ×3 (01:19→10:37)
[2017-08-12] MEDS: MAG HYDROX/AL HYDROX/SIMETH 30 ML UNIT-DOSE CUP PO PRN ×2 (05:49→11:13)
[2017-08-12] MEDS ORDERED: METHADONE HCL 5 MG TABLET (FOR DETOX USE ONLY) PO ONE (06:00)
[2017-08-12] MEDS: FERROUS SO4 325 MG TABLET (FP) PO SCH (08:00)
[2017-08-12] MEDS: DRONABINOL 2.5 MG CAPSULE PO SCH (08:00)
--- NOTE | 2017-08-12 09:26 | DS ---
[facility] Detox Discharge Summary Admission Date: 08/07/17 Discharge Date: 08/12/17 - History Present History: Alcohol Dependence, Cocaine Dependence, Opioid Dependence - Physical Exam Results Vital Signs: Vital Signs Temperature 97.9 F 08/12/17 06:18 Pulse Rate 112 H 08/12/17 06:18 Respiratory Rate 20 08/12/17 06:18 Blood Pressure 147/97 08/12/17 06:18 O2 Sat by Pulse Oximetry (%) - Treatment Hospital Course: Detox Protocol Followed, Detoxed Safely, Responded well, Discharged Condition Good, Rehab Referral Accepted - Medication Discharge Medications: Ambulatory Orders Albuterol Sulfate Inhaler - [Ventolin HFA Inhaler -] 1 inh PO QID PRN 07/24/14 Darunavir Ethanolate [Prezista] 800 mg PO DAILY 07/24/14 Raltegravir Potassium [Isentress] 800 mg PO DAILY 07/24/14 Ritonavir [Norvir] 100 mg PO DAILY 07/24/14 Dronabinol [Marinol] 5 mg PO TID 03/16/16 Ergocalciferol [Vitamin D2] 50,000 units PO WEEKLY 03/19/17 Ferrous Sulfate 325 mg PO BID 03/19/17 Budesonide/Formeterol Fumarate [SYMBICORT 160/4.5mcg -] 1 inh PO BID 08/07/17 Ranitidine [Zantac -] 150 mg PO DAILY 08/07/17 - Diagnosis (1) Opioid dependence with withdrawal Current Visit: Yes Status: Chronic (2) Walker as ambulation aid Current Visit: Yes Status: Acute (3) COPD (chronic obstructive pulmonary disease) Current Visit: Yes Status: Chronic Qualifiers: COPD type: unspecified COPD Qualified Code(s): J44.9 - Chronic obstructive pulmonary disease, unspecified (4) HIV Current Visit: Yes Status: Chronic (5) History of cervical cancer Current Visit: Yes Status: Chronic (6) History of kidney cancer Current Visit: Yes Status: Chronic (7) History of rectal cancer Current Visit: Yes Status: Chronic (8) Peptic ulcer Current Visit: Yes Status: Chronic (9) Hepatitis C Current Visit: Yes Status: Resolved Qualifiers: Viral hepatitis chronicity: chronic Hepatic coma status: without hepatic coma Qualified Code(s): B18.2 - Chronic viral hepatitis C (10) S/P hysterectomy Current Visit: Yes Status: Resolved (11) S/p nephrectomy Current Visit: Yes Status: Resolved (12) Status post right hip replacement Current Visit: Yes Status: Resolved (13) Status post right knee replacement Current Visit: Yes Status: Resolved (14) Bronchospasm Current Visit: No Status: Acute (15) Exacerbation of asthma Current Visit: No Status: Acute (16) Weight loss Current Visit: No Status: Acute (17) Alcohol dependence Current Visit: No Status: Chronic (18) Asthma Current Visit: No Status: Chronic (19) CHRONIC RT HIP PAIN Current Visit: No Status: Chronic (20) Cocaine abuse Current Visit: No Status: Chronic (21) Gastroenteritis Current Visit: No Status: Chronic (22) Insomnia Current Visit: No Status: Chronic (23) Lower back pain Current Visit: No Status: Chronic Qualifiers: Chronicity: chronic Sciatica laterality: sciatica laterality unspecified (24) Unsteady gait Current Visit: No Status: Chronic - AMA Did Patient Leave Against Medical Advice: No
[2017-08-12] MEDS: RANITIDINE HCL 150 MG TABLET (FP) PO SCH (10:36)
[2017-08-12] MEDS: BUDESONIDE/FORMETEROL FUMARATE 160/4.5 mcg INHALER IH SCH (10:36)
[2017-08-12] MEDS: PRENATAL VITAMINS W/ FOLIC ACID TABLET (FP) PO SCH (10:37)
[2017-08-12] MEDS: RITONAVIR 100 MG TABLET PO SCH (10:37)
[2017-08-12] MEDS: RALTEGRAVIR POTASSIUM 400 MG TAB PO SCH (10:37)
[2017-08-12 11:13] VITALS: BP 142/87; PULSE 135; TEMP 97.2
== END 2017-08-12 11:30 | disposition home or self-care (01) | DRG 773 ==
LOC: YASAS 14:13 → Y6N 17:18
PROVIDERS: ADMIT Internal Medicine; ATTEND Internal Medicine
PROC: HZ2ZZZZ Detoxification Services for Substance Abuse Treatment (ICD-10-PCS; principal; 2017-08-10)
DX: F11.23 Opioid dependence with withdrawal (principal); F10.230 Alcohol dependence with withdrawal, uncomplicated; F12.10 Cannabis abuse, uncomplicated; D50.9 Iron deficiency anemia, unspecified; K21.9 Gastro-esophageal reflux disease without esophagitis; Z21 Asymptomatic human immunodeficiency virus [HIV] infection status; G47.00 Insomnia, unspecified; J44.9 Chronic obstructive pulmonary disease, unspecified; J45.901 Unspecified asthma with (acute) exacerbation; R26.81 Unsteadiness on feet; K27.9 Peptic ulcer, site unspecified, unspecified as acute or chronic, without hemorrhage or perforation; B18.2 Chronic viral hepatitis C; M54.40 Lumbago with sciatica, unspecified side; G89.29 Other chronic pain; M25.551 Pain in right hip; Z96.641 Presence of right artificial hip joint; Z99.89 Dependence on other enabling machines and devices; Z85.41 Personal history of malignant neoplasm of cervix uteri; Z85.528 Personal history of other malignant neoplasm of kidney; Z85.048 Personal history of other malignant neoplasm of rectum, rectosigmoid junction, and anus; Z96.651 Presence of right artificial knee joint; Z90.5 Acquired absence of kidney; Z90.710 Acquired absence of both cervix and uterus; Z87.891 Personal history of nicotine dependence; Z87.898 Personal history of other specified conditions
CPT/HCPCS: 36415; 80053; 81003; 81015; 85027; 86593; 93005; 93010